=== PATIENT | female | born 2000 | race Caucasian/White ===

== ENCOUNTER 2022-08-09 10:24 | Outpatient (RCR) | payer OTHER, SELFPAY ==
[2022-08-07 12:54] LABS: Basophils Percent Auto 0.5 % (0.2-1.2); Eosinophils Absolute Auto 0.3 K/mm3 (0-0.3); Eosinophils Percent Auto 3.1 % (0-4.4); Hemoglobin 10.7 g/dL (12.0-15.0); Immature Granulocyte Absolute 0.05 K/mm3 (0.00-0.031); Immature Granulocyte Percent A 0.6 % (0-0.5); Lymphocytes Absolute Auto 1.61 K/mm3 (0.9-3.2); Lymphocytes Percent Auto 18.3 % (18.3-44.2); Mean Corpuscular HGB Conc 33.4 g/dl (32-36); Mean Corpuscular Hemoglobin 30.1 pg (26-34); Mean Corpuscular Volume 90.1 fl (80-100); Mean Platelet Volume 10.3 fl (7.4-10.4); Monocytes Absolute Auto 0.6 K/mm3 (0.1-0.6); Monocytes Percent Auto 7.1 % (2.6-8.5); Neutrophils Absolute Auto 6.2 K/mm3 (1.3-6.7); Neutrophils Percent Auto 70.4 % (45.5-73.1); Platelet Count Result 208 k/mm3 (150-375); Red Blood Count 3.55 M/mm3 (4.2-5.4); Red Cell Distribution Width 12.8 % (11.5-14.5); White Blood Count 8.8 K/mm3 (4.5-10.0)
[2022-08-07 13:02] LABS: Glucose 1 Hour PP 50gm Dose 100 mg/dL
[2022-08-07 13:43] LABS: HIV 1/2 Ab P24 Ag Result Negative (Negative)
[2022-08-09] MEDS: RHO(D) IMMUNE GLOBULIN 300 MCG/2 ML SYRINGE IM (11:21)
== END 2022-08-09 11:00 | disposition home or self-care (01) ==
LOC: ANHLAB 10:24
PROVIDERS: PCP Obstetrics & Gynecology; Visit Provider Obstetrics & Gynecology
DX: Z11.4 Encounter for screening for human immunodeficiency virus [HIV] (principal); Z29.13 Encounter for prophylactic Rho(D) immune globulin; O36.0190 Maternal care for anti-D [Rh] antibodies, unspecified trimester, not applicable or unspecified; Z3A.00 Weeks of gestation of pregnancy not specified
CPT/HCPCS: 36415; 82947; 85025; 85461; 86703; 90384; 96372; G0432; J2790

== ENCOUNTER 2022-09-04 15:12 | Outpatient (CLI) | payer OTHER, MEDICAID, SELFPAY ==
[2022-09-04 16:03] LABS: INR 1.1; Prothrombin Time 13.4 Seconds (11.1-14.7)
[2022-09-04 16:04] LABS: Partial Thromboplastin Time 24.6 SECONDS (22.3-36.8)
[2022-09-04 16:40] LABS: Alanine Aminotransferase 15 U/L (6-35); Albumin Level 3.4 g/dL (3.5-5.1); Alkaline Phosphatase 114 U/L (38-126); Anion Gap 8 mmol/L (8-16); Aspartate Amino Transferase 19 U/L (14-36); Bilirubin,Total 0.4 mg/dL (0.2-1.3); Blood Urea Nitrogen 10 mg/dL (7-17); Calcium 8.3 mg/dL (8.4-10.2); Carbon Dioxide 24 mmol/L (22-30); Chloride 105 mmol/L (98-107); Estimated Glomerular Filt Rate > 60; Glucose 100 mg/dL (65-110); Potassium 3.8 mmol/L (3.4-5.0); Sodium 137 mmol/L (137-145)
[2022-09-11 14:07] LABS: Chenodeoxycholic Acid 0.9 umol/L (< OR = 3.9); Cholic Acid 0.8 umol/L (< OR = 2.8); Deoxycholic Acid 0.8 umol/L (< OR = 2.3); Total Bile Acids 2.5 umol/L (< OR = 8.3)
== END 2022-09-04 15:13 | disposition home or self-care (01) ==
PROVIDERS: PCP Obstetrics & Gynecology; Visit Provider Obstetrics & Gynecology
DX: L29.8 Other pruritus (principal); Z34.90 Encounter for supervision of normal pregnancy, unspecified, unspecified trimester; Z3A.00 Weeks of gestation of pregnancy not specified
CPT/HCPCS: 36415; 80053; 82542; 85610; 85730

== ENCOUNTER 2022-09-17 15:00 | Outpatient (RCR) | payer OTHER, MEDICAID, SELFPAY ==
--- NOTE | 2022-08-20 09:50 | PTOPEVAL1 ---
Assessment and note entered by Diann Adler, PT Evaluation Information Assessment Status Evaluation Diagnosis sciatica unspecified Onset 2015 Subjective Information on and off 6 years, hard labor jobs. L>R no traumatic incident Reported Pain Level Pain Score 3: Self Report Additional Pain Score Comments Pt reports legs will go numb when walking long periods Reports hx of sciatica on and off last 6 years L>R Notes with , her pain worsens as she progresses. Assessment PT Clinical Summary Pt presents w/ hx of sciatica issues prior to that has worsened as her has progressed. Evaluation shows RLE leg is longer, decreased lumbopelvic strength in mata in glutes, tight and tender musculature lumbopelvic alignment changes consistent with . 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 Pt will benefit from therapy to minimize discomfort through progression of through alignment, strengthening, and manual soft issue procedures Plan of Care Interventions Manual Therapy,Neuro Re-education,Therapeutic Activities,Therapeutic Exercise,Self-Care/Home Management. Would benefit from SI Belt Other Interventions cold pack These treatments will address the objective and functional deficits as defined above. The patient will be advanced safely and appropriately in order for the patient to progress towards his/her prior level of function. Additional exercises will be introduced and as well as a comprehensive home exercise program upon discharge, if needed, ?to ensure carryover of functional gains achieved in the clinic. This treatment plan has been reviewed and agreement upon by the patient.
--- NOTE | 2022-09-01 08:56 | PCPTNOTE ---
Patient did not show up for scheduled appointment this date. Called and left voice mail, reminded Pt of missed appointment and upcoming appointment on 09/04/22 @14:15. This is Pt's first N/S.
--- NOTE | 2022-09-21 08:31 | BUPTOPDC ---
Assessment and note entered by Diann Adler, PT
--- NOTE | 2022-09-22 16:16 | BUPTOPDC ---
Assessment and note entered by Diann Adler, PT Discharge Information Assessment Status Discharge Diagnosis sciatica unspecified Onset 2015 Subjective Information Reports since starting therapy, episodes of her legs going numb have resolved as well as pain going down her legs. She cont to have back pain with work but has severe pain less often and on her days off she has no pain in her back. She also notes when she does have severe pain it reduces more quickly than previously Assessment PT Clinical Summary Pt has attended therapy consistently since initially evaluation for back pain and sciatica issues. She has made significantly progress especially considering the changes her body is going through rapidly as this phase of . Pt reports numbness and pain in legs has resolved, she has less severe pain less often and when she does have pain it recedes more rapidly. She shows increased strength and stability in her lumbopelvic area as well. She has been provided with up to date home exercises related to stretching and strengthening and educated her current discomfort is likely related to body changes with and her highly physical work activities. Thus patient is being discharged from current POC. She was educated also on returning to therapy should her symptoms worsen again as well as therapy options for pelvic floor rehab post- to prevent reoccurrence of sciatica and provide greatest outcomes. Plan of Care Discharge PT Services Indicated No
== END 2022-09-23 12:55 | disposition home or self-care (01) ==
LOC: ANHPT 15:00
PROVIDERS: PCP Obstetrics & Gynecology; Visit Provider Obstetrics & Gynecology
DX: M54.30 Sciatica, unspecified side (principal)
CPT/HCPCS: 97110; 97140; 97162; 99199

== ENCOUNTER 2022-10-06 17:58 | Outpatient (CLI) | payer OTHER, MEDICAID, SELFPAY ==
[2022-10-06 18:16] VITALS: BP 132/83; PULSE 82
[2022-10-06 18:30] VITALS: BP 127/76; PULSE 88
[2022-10-06 18:44] LABS: Appearance Urine Clear (Clear); Bilirubin Urine Negative (Negative); Blood Urine Negative (Negative); Color Urine Yellow (Yellow); Glucose Urine UA Negative (Negative); Ketones Urine Negative (Negative); Leukocyte Esterase Ur Negative LEU/UL (NEGATIVE); Nitrate Urine Negative (Negative); Protein Urine Negative (Negative); Specific Grav Ur 1.015 (1.001-1.035); pH Urine 6.5 (5.0-9.0)
[2022-10-06 18:45] VITALS: BP 124/75; PULSE 84
[2022-10-06 18:45] LABS: Basophils Percent Auto 0.1 % (0.2-1.2); Eosinophils Percent Auto 0.5 % (0-4.4); Hematocrit 29.2 % (37.0-47.0); Hemoglobin 9.5 g/dL (12.0-15.0); Immature Granulocyte Absolute 0.04 K/mm3 (0.00-0.031); Immature Granulocyte Percent A 0.5 % (0-0.5); Lymphocytes Absolute Auto 1.24 K/mm3 (0.9-3.2); Lymphocytes Percent Auto 16.3 % (18.3-44.2); Mean Corpuscular HGB Conc 32.5 g/dl (32-36); Mean Corpuscular Hemoglobin 27.5 pg (26-34); Mean Corpuscular Volume 84.6 fl (80-100); Mean Platelet Volume 11.7 fl (7.4-10.4); Monocytes Absolute Auto 0.5 K/mm3 (0.1-0.6); Monocytes Percent Auto 6.3 % (2.6-8.5); Neutrophils Absolute Auto 5.8 K/mm3 (1.3-6.7); Neutrophils Percent Auto 76.3 % (45.5-73.1); Platelet Count Result 205 k/mm3 (150-375); Red Blood Count 3.45 M/mm3 (4.2-5.4); Red Cell Distribution Width 12.9 % (11.5-14.5); White Blood Count 7.6 K/mm3 (4.5-10.0)
[2022-10-06 18:46] LABS: Bacteria Urine Trace /hpf; Mucus Urine Rare /lpf; RBC Urine 0-2 /hpf (0-2); WBC Urine 0-3 /hpf (0-3)
[2022-10-06 18:54] LABS: Alanine Aminotransferase 17 U/L (6-35); Albumin Level 3.2 g/dL (3.5-5.1); Alkaline Phosphatase 155 U/L (38-126); Anion Gap 10 mmol/L (8-16); Aspartate Amino Transferase 27 U/L (14-36); Bilirubin,Total 0.2 mg/dL (0.2-1.3); Blood Urea Nitrogen 9 mg/dL (7-17); Calcium 8.1 mg/dL (8.4-10.2); Carbon Dioxide 23 mmol/L (22-30); Chloride 102 mmol/L (98-107); Estimated Glomerular Filt Rate > 60; Glucose 103 mg/dL (65-110); Potassium 3.5 mmol/L (3.4-5.0); Sodium 135 mmol/L (137-145); Uric Acid 5.6 mg/dL (2.5-7.5)
[2022-10-06 19:00] VITALS: BP 123/71; PULSE 82
[2022-10-06 19:15] VITALS: BP 112/66; PULSE 74
[2022-10-06 19:17] LABS: Creatinine Urine 73.9 mg/dL; Total Protein Urine Random 6 mg/dL; Ur Ttl Prot Creatinine Ratio 0.08 mg/mg (0-0.20)
[2022-10-06 19:23] LABS: Add Urine Microscopic? NO
[2022-10-06 19:30] VITALS: BP 127/72; PULSE 72
--- NOTE | 2022-10-06 19:38 | PC.NURSE ---
192 Dr. Burkett paged via answering service.
--- NOTE | 2022-10-06 19:44 | PC.NURSE ---
[address] Burkett. Reviewed labs, [facility]. Orders received to send patient home with instructions to stay hydrated and keep next appointment at the office.
== END 2022-10-06 19:48 ==
LOC: ANHOBOP 18:05 → ANHOBPP 18:06
PROVIDERS: Visit Provider Obstetrics & Gynecology
DX: O13.9 Gestational [pregnancy-induced] hypertension without significant proteinuria, unspecified trimester (principal)
CPT/HCPCS: 36415; 59025; 80053; 81003; 82570; 84156; 84550; 85025; 87086; 99199

== ENCOUNTER 2022-10-21 02:41 | Inpatient (IN) | payer OTHER, MEDICAID, SELFPAY ==
[2022-10-21] VITALS (107 sets, daily range): BP systolic 102–217; BP diastolic 49–196; PULSE 44–193; RESP 16–18; TEMP 36.5–37.3; O2SAT 72–100; BMI 25.9
[2022-10-21 03:21] LABS: Basophils Percent Auto 0.3 % (0.2-1.2); Eosinophils Absolute Auto 0.1 K/mm3 (0-0.3); Eosinophils Percent Auto 0.6 % (0-4.4); Hematocrit 35.2 % (37.0-47.0); Hemoglobin 11.3 g/dL (12.0-15.0); Immature Granulocyte Absolute 0.18 K/mm3 (0.00-0.031); Immature Granulocyte Percent A 1.2 % (0-0.5); Lymphocytes Absolute Auto 1.82 K/mm3 (0.9-3.2); Lymphocytes Percent Auto 12.6 % (18.3-44.2); Mean Corpuscular HGB Conc 32.1 g/dl (32-36); Mean Corpuscular Hemoglobin 27.3 pg (26-34); Mean Platelet Volume 12.4 fl (7.4-10.4); Monocytes Absolute Auto 1.1 K/mm3 (0.1-0.6); Monocytes Percent Auto 7.6 % (2.6-8.5); Neutrophils Absolute Auto 11.2 K/mm3 (1.3-6.7); Neutrophils Percent Auto 77.7 % (45.5-73.1); Platelet Count Result 241 k/mm3 (150-375); Red Blood Count 4.14 M/mm3 (4.2-5.4); Red Cell Distribution Width 14.1 % (11.5-14.5); White Blood Count 14.4 K/mm3 (4.5-10.0)
--- NOTE | 2022-10-21 03:22 | LDADM ---
This patient, Nancie Zamora, was admitted to Labor/Delivery/Recovery 103 on 10/21/22 at 02:41. Plans for labor, pain management and were discussed with patient. Patient/family oriented to hospital policies and general routines including ID bracelet, bed and alarms, visiting hours, pain management, procedures, bathroom and other care routines, personal items, smoking policy, room service/diet and guest tray routines, security routines, and visiting hours. Patient/Family are encouraged to report perceived risks to care and to ask questions if they do not understand what they are told or what they should do. See OBIX for further documentation.
[2022-10-21] MEDS: LACTATED RINGERS 1,000 ML 125 ML IV CONT ×3 (03:30→06:46)
--- NOTE | 2022-10-21 03:40 | WPDANESEPP ---
Anes - Eval Pre Procedure Procedure: labor epidural Date/Time: 10/21/22 03:40 Pre Op Diagnosis: contractions Patient Data Age: 22 Gender: F Height: 1.7 m Weight: 75 kg Last Vital Signs Pulse 101 H 10/21/22 03:33 BP 154/100 H 10/21/22 03:33 O2 Del Method Room Air 10/21/22 02:41 Allergies Allergy/AdvReac Type Severity Reaction Status Date / Time No Known Allergies Allergy Verified 10/16/22 10:16 Home Medications Medication Instructions Recorded Confirmed Type metoclopramide HCl 10 mg tablet 10 mg PO Q6H PRN nausea and 09/07/22 10/21/22 Rx (Reglan) vomiting #40 tabs Laboratory Tests 10/21/22 10/21/22 03:13 03:13 WBC 14.4 K/mm3 H K/mm3 (4.5-10.0) RBC 4.14 M/mm3 L M/mm3 (4.2-5.4) Hgb 11.3 g/dL L g/dL (12.0-15.0) Hct 35.2 % L % (37.0-47.0) MCV 85.0 fl fl (80-100) MCH 27.3 pg pg (26-34) MCHC 32.1 g/dl g/dl (32-36) RDW 14.1 % % (11.5-14.5) Plt Count 241 k/mm3 k/mm3 (150-375) MPV 12.4 fl H fl (7.4-10.4) Immature Gran % (Auto) 1.2 % H % (0-0.5) Neut % (Auto) 77.7 % H % (45.5-73.1) Lymph % (Auto) 12.6 % L % (18.3-44.2) Hanson % (Auto) 7.6 % % (2.6-8.5) Eos % (Auto) 0.6 % % (0-4.4) Baso % (Auto) 0.3 % % (0.2-1.2) Lymph # (Auto) 1.82 K/mm3 K/mm3 (0.9-3.2) Hanson # (Auto) 1.1 K/mm3 H K/mm3 (0.1-0.6) Eos # (Auto) 0.1 K/mm3 K/mm3 (0-0.3) Baso # (Auto) 0.0 K/mm3 K/mm3 (0.0-0.1) Abs Immat Gran (auto) 0.18 K/mm3 H K/mm3 (0.00-0.031) Absolute Neuts (auto) 11.2 K/mm3 H K/mm3 (1.3-6.7) Absolute Nucleated RBC 0.0 K/mm3 K/mm3 (0.0-0.012) Nucleated RBC % 0.0 % % (0.0-0.2) RPR Pending Patient hx anesthesia problems: none Family hx anesthesia problems: none Results Review: All pre-operative results and documents have been reviewed as part of the pre-operative evaluation. [facility] Past Medical History Medical History Anxiety and depression Kidney disease (~04/29/18) clogged kidney Suppression of menstruation Family History Family History Mother Diabetes mellitus Breast cancer, Onset Age: 45 Grandparent Diabetes mellitus Sibling Diabetes mellitus Social History Social History Smoking packs per day: 0.5 Smoking cigarettes per day: 10.0 Smoking status: Former smoker Tobacco type: cigarettes Second hand tobacco smoke exposure: Yes Smoking end date: 01/20/22 Alcohol intake: never Substance use: never Substance use type: does not use Lack of Transportation: No Lack of Food: Never True Current Housing: I Have Housing Concerned About Future Housing: No Difficulty Paying Gas/Electric Bills: No Difficulty Paying for Meds: No Currently Unemployed: No Education: Grade School Difficulty w/ Childcare or Family Care: No Additional living arrangements comments: Additional occupation/education comments: [employer] Gender identity (if verbalized by the patient): Female Sexual Orientation (if Verbalized by the Patient): Straight or Heterosexual Spiritual care concerns: No Exam Day of Procedure 10/21/22 03:40 Patient weight: normal Heart: regular rate and rhythm Lungs: normal air movement Airway: Mallampati scale Neurological: alert and oriented
[2022-10-21 06:37] LABS: Rapid Plasma Reagin Non-Reactive (NonReactive)
[2022-10-21] MEDS: FAMOTIDINE 20 MG/2 ML VIAL IV PUSH (06:56)
[2022-10-21] MEDS: OXYTOCIN 30 UNITS/NS 500 ML 30 UNITS/500 ML BAG IV CONT (07:30)
--- NOTE | 2022-10-21 10:46 | WPDHPUPDATE1 ---
History and Physical Update Update Date/Time: 10/21/22 10:46 History and Physical has been reviewed, including an updated exam of the patient. There are NO changes in the patient's condition. Risks, benefits, and alternatives have been discussed and questions answered. Patient agrees to proceed with procedure.
--- NOTE | 2022-10-21 10:46 | PM.OBPRVD ---
OB - Delivery Note Procedure Induction method: None Delivery augmentation: Pitocin Delivery monitor: External FHT and External Uterine Route of delivery: Episiotomy description: None Laceration Description: Vaginal Delivery repair: chromic Specimen: No Quantitative Blood Loss (ml): 350 Anesthesia type: Epidural Disposition: Floor Complications: none Narrative: patient prepped and draped usual manner for this procedure. Maternal expulsive efforts readily delivered vertex which was followed by the rest of the baby. Cord clamped and cut baby was passed off the operative field. Placenta delivered spontaneously and the uterus well contracted. Left vaginal wall laceration was noted and approximated using 2-0 chromic in a running interlocking manner with good approximation and hemostasis noted. Again at this point there was no significant bleeding and mother was doing well. Immediate postop condition of mother baby both excellent at this point the procedure was considered terminated. Baby Weeks of gestation at delivery: 40 gender: Male Weight (pounds): 7 Weight (ounces): 9 presentation: vertex Placenta delivery description: Spontaneous Cord Vessel Description: 3 Vessels score one minute: 8 score five minutes: 9 AMG Delivery Billing Delivery Delivery: Delivery Charge
--- NOTE | 2022-10-21 10:54 | WPDOBADMIT ---
Obstetrics - Admit Note Admission Note: record reviewed. No pertinent additions to the history and/or any subsequent changes in the physical findings that are not consistent with the expected course of the were found. Additions to the history and/or subsequent changes in the physical findings follow. None.
[2022-10-21] MEDS: WITCH HAZEL 40 PADS 1 PAD TOPICAL (12:13)
[2022-10-21] MEDS: BENZOCAINE 20% AER SPR (*SP) 56 GM CAN 1 SPRAY TOPICAL (12:13)
[2022-10-21] MEDS: IBUPROFEN 600 MG TABLET PO (12:27)
--- NOTE | 2022-10-21 12:41 | PC.NURSE ---
Patient transferred to post room #283 via (W/C). Support person present. Oriented to unit, room, information board, rooming in, admission packet and security measures. Patient verbalizes understanding.
[2022-10-21] MEDS: ACETAMINOPHEN 325 MG TABLET 650 MG PO (15:51)
[2022-10-21] MEDS: DOCUSATE SODIUM 100 MG CAPSULE PO (15:52)
[2022-10-22 03:51] VITALS: BP 148/90; PULSE 67; RESP 18; TEMP 36.9; O2SAT 99
[2022-10-22 04:32] LABS: Hematocrit 28.5 % (37.0-47.0); Hemoglobin 9.1 g/dL (12.0-15.0)
[2022-10-22] MEDS: IBUPROFEN 600 MG TABLET PO ×2 (07:52→14:43)
[2022-10-22] MEDS: DOCUSATE SODIUM 100 MG CAPSULE PO (07:53)
[2022-10-22] MEDS: POLYSACCHARIDE IRON COMPLEX 150 MG CAPSULE PO (07:53)
[2022-10-22] MEDS: MULTIVIT/MIN/PREN/FOL AC/IRON TABLET 1 TAB PO (07:53)
[2022-10-22 08:00] VITALS: BP 125/79; PULSE 90; RESP 20; TEMP 37.2; O2SAT 99
--- NOTE | 2022-10-22 10:09 | PM.OBDSVD ---
DS: Admitting Diagnosis Discharge Date 10/22/2022 Admitting Diagnosis OB - DS: Summary OB Procedures : None OB Procedures Intrapartum: Spontaneous Vag Delivery OB Procedures: : None Time Spent with Patient Time attestation: Total time spent providing and/or coordinating discharge services: DS: Data Data Completed and Pending Labs on day of discharge: Labs from last 24 hours 10/22/22 10/22/22 03:30 03:30 Hgb 9.1 L Hct 28.5 L Blood Type O Negative Antibody Screen Negative Screen Negative Baby's Blood Type O pos Baby's TANESHA Negative Doses of RhIg Required 1 Discharge Plan Discharge Discharging Clinician: Alcides Burkett Patient Disposition: Home, Self-Care Activity: as tolerated Diet: as tolerated Patient Instructions: Antibiotic Form Stand Alone Forms: General Discharge Information Follow-up/Referrals: Alcides Burkett MD [Physician] - Discharge Medications: New ibuprofen 600 mg Tablet 600 mg PO Q6H PRN (Reason: Cramping) Qty: 30 0RF Discontinued metoclopramide HCl [Reglan] 10 mg tablet 10 mg PO Q6H PRN (Reason: nausea and vomiting) Qty: 40 2RF Date of admission: 10/21/22 02:41 Primary Care Provider: PHYSICIAN,[employer] Admitting Provider: Alcides Burkett Attending physician on admission: Alcides Burkett Condition: Stable
--- NOTE | 2022-10-22 10:48 | WPDANLDPN2 ---
Anes-Prog Note L&D Date/Time: 10/22/22 10:48 Comfortable throughout: labor and delivery Neuraxial method: epidural Epidural/Spinal procedure site: clean & non-tender Neuro status: Neuro function grossly intact. Cardiovascular status: normal Respiratory status: normal Airway patency: baseline Mental status: baseline Post-Op hydration status: normal Vital Signs: Last Vital Signs Temp 37.2 C 10/22/22 08:00 Pulse 90 10/22/22 08:00 Resp 20 10/22/22 08:00 BP 125/79 10/22/22 08:00 Pulse Ox 99 10/22/22 08:00 O2 Del Method Room Air 10/21/22 21:00 Pain score (VAS): 12/08 I/O: Intake & Output 10/21/22 10/22/22 10/22/22 23:59 07:59 15:59 Intake Total 240 Balance 240 Post-procedural complaints: none Patient feedback: Patient satisfied with anesthetic care.
[2022-10-22] MEDS: RHO(D) IMMUNE GLOBULIN 300 MCG/2 ML SYRINGE IM (14:38)
--- NOTE | 2022-10-22 15:23 | PC.NURSE ---
7830 Patient viewed the discharge video Mother & Baby Care, The First Two Weeks . Patient was given the opportunity and encouraged to ask questions. Patient verbalized understanding of information shared and has been given the mother/baby guide for home reference.
== END 2022-10-22 15:25 | disposition home or self-care (01) | DRG 807 ==
LOC: ANHLDR 03:17 → ANHOB2 13:07
PROVIDERS: Admitting Provider Obstetrics & Gynecology; Visit Provider Obstetrics & Gynecology
DX: O70.0 First degree perineal laceration during delivery (principal); Z37.0 Single live birth; Z3A.40 40 weeks gestation of pregnancy; Z23 Encounter for immunization
CPT/HCPCS: 36415; 85014; 85018; 85025; 85461; 86592; 86850; 86880; 86900; 86901; 90384; 90471; 90686; A9270; G0008; J2590; J2790; J2795; J7120

== ENCOUNTER 2022-12-17 09:20 | Outpatient (CLI) | payer OTHER, MEDICAID, SELFPAY ==
[2022-12-17 10:23] LABS: Beta HCG Quantitative < 2.39 mIU/ML
== END 2022-12-17 09:21 | disposition home or self-care (01) ==
LOC: ANHLAB 09:23
PROVIDERS: Visit Provider Student in an Organized Health Care Education/Training Program
DX: N92.6 Irregular menstruation, unspecified (principal)
CPT/HCPCS: 36415; 84702

== ENCOUNTER 2023-06-30 15:44 | Outpatient (CLI) | payer OTHER, MEDICAID, SELFPAY ==
[2023-06-30 19:10] LABS: Basophils Percent Auto 0.6 % (0.2-1.2); Eosinophils Percent Auto 0.8 % (0-4.4); Hematocrit 39.6 % (37.0-47.0); Hemoglobin 13.1 g/dL (12.0-15.0); Immature Granulocyte Absolute 0.01 K/mm3 (0.00-0.031); Immature Granulocyte Percent A 0.2 % (0-0.5); Lymphocytes Absolute Auto 1.83 K/mm3 (0.9-3.2); Lymphocytes Percent Auto 37.5 % (18.3-44.2); Mean Corpuscular HGB Conc 33.1 g/dl (32-36); Mean Corpuscular Hemoglobin 29.2 pg (26-34); Mean Corpuscular Volume 88.2 fl (80-100); Mean Platelet Volume 11.8 fl (7.4-10.4); Monocytes Absolute Auto 0.4 K/mm3 (0.1-0.6); Monocytes Percent Auto 7.8 % (2.6-8.5); Neutrophils Absolute Auto 2.6 K/mm3 (1.3-6.7); Neutrophils Percent Auto 53.1 % (45.5-73.1); Platelet Count Result 232 k/mm3 (150-375); Red Blood Count 4.49 M/mm3 (4.2-5.4); Red Cell Distribution Width 13.2 % (11.5-14.5); White Blood Count 4.9 K/mm3 (4.5-10.0)
[2023-06-30 19:42] LABS: Thyroid Stimulating Hormone 0.391 uIU/mL (0.465-4.680)
== END 2023-06-30 15:45 | disposition home or self-care (01) ==
LOC: ANHGOSHLAB 15:46
PROVIDERS: Visit Provider Student in an Organized Health Care Education/Training Program
DX: R53.1 Weakness (principal); R42 Dizziness and giddiness
CPT/HCPCS: 36415; 84443; 85025

== ENCOUNTER 2024-02-23 10:46 | Outpatient (CLI) | payer OTHER, SELFPAY ==
[2024-02-23 11:57] LABS: Basophils Percent Auto 0.7 % (0.2-1.2); Eosinophils Absolute Auto 0.1 K/mm3 (0-0.3); Eosinophils Percent Auto 0.9 % (0-4.4); Hematocrit 40.7 % (37.0-47.0); Hemoglobin 13.7 g/dL (12.0-15.0); Immature Granulocyte Absolute 0.02 K/mm3 (0.00-0.031); Immature Granulocyte Percent A 0.4 % (0-0.5); Lymphocytes Absolute Auto 1.47 K/mm3 (0.9-3.2); Lymphocytes Percent Auto 27.3 % (18.3-44.2); Mean Corpuscular HGB Conc 33.7 g/dl (32-36); Mean Corpuscular Hemoglobin 30.6 pg (26-34); Mean Corpuscular Volume 91.1 fl (80-100); Mean Platelet Volume 11.6 fl (7.4-10.4); Monocytes Absolute Auto 0.4 K/mm3 (0.1-0.6); Monocytes Percent Auto 6.7 % (2.6-8.5); Neutrophils Absolute Auto 3.4 K/mm3 (1.3-6.7); Platelet Count Result 189 k/mm3 (150-375); Red Blood Count 4.47 M/mm3 (4.2-5.4); Red Cell Distribution Width 12.1 % (11.5-14.5); White Blood Count 5.4 K/mm3 (4.5-10.0)
[2024-02-23 12:26] LABS: Beta HCG Quantitative 40.08 mIU/ML
[2024-02-23 12:51] LABS: HIV 1/2 Ab P24 Ag Result Negative (Negative)
[2024-02-23 13:05] LABS: Hepatitis B Surface Antigen Negative (Negative); Rubella IgG Antibody 30.8 IU/ML
[2024-02-23 14:27] LABS: Rapid Plasma Reagin Non-Reactive (NonReactive)
[2024-02-25 18:33] LABS: CMV IgG Antibody >10.00 U/mL (<0.60)
== END 2024-02-23 10:47 | disposition home or self-care (01) ==
PROVIDERS: Visit Provider Student in an Organized Health Care Education/Training Program
DX: N94.89 Other specified conditions associated with female genital organs and menstrual cycle (principal)
CPT/HCPCS: 36415; 84702; 85025; 86592; 86644; 86703; 86747; 86762; 86787; 86850; 86900; 86901; 87086; 87340; G0432

== ENCOUNTER 2024-02-25 08:40 | Outpatient (CLI) | payer OTHER, SELFPAY ==
[2024-02-25 10:15] LABS: Beta HCG Quantitative 122.57 mIU/ML
== END 2024-02-25 08:41 | disposition home or self-care (01) ==
LOC: ANHLAB 08:41
PROVIDERS: PCP Nurse Practitioner Family; Visit Provider Student in an Organized Health Care Education/Training Program
DX: N91.2 Amenorrhea, unspecified (principal)
CPT/HCPCS: 36415; 84702

== ENCOUNTER 2024-08-16 13:11 | Outpatient (RCR) | payer OTHER, SELFPAY ==
[2024-08-16 14:31] LABS: Hematocrit 33.8 % (37.0-47.0); Hemoglobin 11.2 g/dL (12.0-15.0); Mean Corpuscular HGB Conc 33.1 g/dl (32-36); Mean Corpuscular Hemoglobin 30.2 pg (26-34); Mean Corpuscular Volume 91.1 fl (80-100); Mean Platelet Volume 10.2 fl (7.4-10.4); Platelet Count Result 173 k/mm3 (150-375); Red Blood Count 3.71 M/mm3 (4.2-5.4); Red Cell Distribution Width 12.9 % (11.5-14.5); White Blood Count 8.9 K/mm3 (4.5-10.0)
[2024-08-16 14:45] LABS: Glucose 1 Hour PP 50gm Dose 83 mg/dL
[2024-08-16 15:15] LABS: Thyroid Stimulating Hormone 0.249 uIU/mL (0.465-4.680)
[2024-08-16 15:25] LABS: HIV 1/2 Ab P24 Ag Result Negative (Negative)
[2024-08-17 17:30] LABS: Rapid Plasma Reagin Non-Reactive (NonReactive)
== END 2024-11-14 23:59 | disposition home or self-care (01) ==
LOC: ANHLAB 13:11
PROVIDERS: PCP Nurse Practitioner Family; Visit Provider Student in an Organized Health Care Education/Training Program
DX: Z11.4 Encounter for screening for human immunodeficiency virus [HIV] (principal); Z11.3 Encounter for screening for infections with a predominantly sexual mode of transmission; Z29.13 Encounter for prophylactic Rho(D) immune globulin; O36.0190 Maternal care for anti-D [Rh] antibodies, unspecified trimester, not applicable or unspecified; O99.280 Endocrine, nutritional and metabolic diseases complicating pregnancy, unspecified trimester; E03.9 Hypothyroidism, unspecified; Z3A.00 Weeks of gestation of pregnancy not specified
CPT/HCPCS: 36415; 82947; 84439; 84443; 85027; 85461; 86592; 86703; 86850; 86900; 86901; 90384; G0432; J2790

== ENCOUNTER 2024-08-17 16:06 | Outpatient (CLI) | payer OTHER, SELFPAY ==
[2024-08-17] MEDS: RHO(D) IMMUNE GLOBULIN 300 MCG/2 ML SYRINGE IM (16:41)
[2024-08-17 17:44] LABS: Free T4 Free Thyroxine 0.73 ng/mL (0.78-2.19)
== END 2024-08-17 16:07 | disposition home or self-care (01) ==
LOC: ANHLAB 16:07
PROVIDERS: PCP Nurse Practitioner Family; Visit Provider Student in an Organized Health Care Education/Training Program
DX: O99.280 Endocrine, nutritional and metabolic diseases complicating pregnancy, unspecified trimester (principal); E05.90 Thyrotoxicosis, unspecified without thyrotoxic crisis or storm; Z3A.00 Weeks of gestation of pregnancy not specified
CPT/HCPCS: 36415; 84439

== ENCOUNTER 2024-08-22 12:08 | Outpatient (CLI) | payer OTHER, SELFPAY ==
[2024-08-22 13:13] LABS: Free T4 Free Thyroxine 0.78 ng/mL (0.78-2.19)
== END 2024-08-22 12:09 | disposition home or self-care (01) ==
LOC: ANHLAB 12:09
PROVIDERS: PCP Nurse Practitioner Family; Visit Provider Student in an Organized Health Care Education/Training Program
DX: O99.280 Endocrine, nutritional and metabolic diseases complicating pregnancy, unspecified trimester (principal); E05.90 Thyrotoxicosis, unspecified without thyrotoxic crisis or storm; Z3A.00 Weeks of gestation of pregnancy not specified
CPT/HCPCS: 36415; 84439

== ENCOUNTER 2024-09-20 10:39 | Outpatient (CLI) | payer OTHER, SELFPAY ==
[2024-09-20 11:57] LABS: Thyroid Stimulating Hormone 0.188 uIU/mL (0.465-4.680)
== END 2024-09-20 10:40 | disposition home or self-care (01) ==
PROVIDERS: PCP Nurse Practitioner Family
DX: E03.8 Other specified hypothyroidism (principal)
CPT/HCPCS: 36415; 84443

== ENCOUNTER 2024-11-02 22:24 | Inpatient (IN) | payer OTHER, SELFPAY ==
[2024-11-02] VITALS (19 sets, daily range): BP systolic 113–144; BP diastolic 70–91; PULSE 78–100; TEMP 36.7; O2SAT 97–100; BMI 24.3
[2024-11-02] MEDS: LACTATED RINGERS 1,000 ML 125 ML IV CONT ×2 (23:10→23:26)
[2024-11-02 23:12] LABS: Basophils Percent Auto 0.3 % (0.2-1.2); Eosinophils Absolute Auto 0.1 K/mm3 (0-0.3); Eosinophils Percent Auto 0.8 % (0-4.4); Hematocrit 35.9 % (37.0-47.0); Hemoglobin 12.3 g/dL (12.0-15.0); Immature Granulocyte Absolute 0.07 K/mm3 (0.00-0.031); Immature Granulocyte Percent A 0.8 % (0-0.5); Lymphocytes Absolute Auto 1.67 K/mm3 (0.9-3.2); Lymphocytes Percent Auto 18.4 % (18.3-44.2); Mean Corpuscular HGB Conc 34.3 g/dl (32-36); Mean Corpuscular Hemoglobin 30.4 pg (26-34); Mean Corpuscular Volume 88.6 fl (80-100); Mean Platelet Volume 11.5 fl (7.4-10.4); Monocytes Absolute Auto 0.6 K/mm3 (0.1-0.6); Monocytes Percent Auto 6.9 % (2.6-8.5); Neutrophils Absolute Auto 6.6 K/mm3 (1.3-6.7); Neutrophils Percent Auto 72.8 % (45.5-73.1); Platelet Count Result 188 k/mm3 (150-375); Red Blood Count 4.05 M/mm3 (4.2-5.4); Red Cell Distribution Width 13.2 % (11.5-14.5); White Blood Count 9.1 K/mm3 (4.5-10.0)
--- NOTE | 2024-11-02 23:14 | LDADM ---
This patient, Nancie Zamora, was admitted to Labor/Delivery/Recovery 107 on 11/02/24 at 22:24. Plans for labor, pain management and were discussed with patient. Patient/family oriented to hospital policies and general routines including ID bracelet, bed and alarms, visiting hours, pain management, procedures, bathroom and other care routines, personal items, smoking policy, room service/diet and guest tray routines, security routines, and visiting hours. Patient/Family are encouraged to report perceived risks to care and to ask questions if they do not understand what they are told or what they should do. See OBIX for further documentation.
--- NOTE | 2024-11-02 23:25 | P.PNAN_ITS ---
Anes - Eval Pre Procedure Procedure: Labor Epidural Date/Time: 11/02/24 23:25 Surgeon: Marisol Preop Diagnosis: Labor pain Pre Op Diagnosis: labor Patient Data Age: 24 Gender: F Height: 1.7 m Weight: 70.45 kg Last Vital Signs Pulse 78 11/02/24 23:16 BP 113/77 11/02/24 23:16 O2 Del Method Room Air 11/02/24 23:12 Allergies Allergy/AdvReac Type Severity Reaction Status Date / Time No Known Allergies Allergy Verified 11/02/24 08:56 Home Medications Medication Instructions Recorded Confirmed Type ondansetron HCl 4 mg tablet 4 mg PO Q6H PRN nausea and 03/30/24 11/02/24 Rx vomiting #30 tabs vits no.126-ferrous fum 1 tablet PO DAILY #90 tabs 07/18/24 11/02/24 Rx 28 mg iron-folic acid 800 mcg tablet (Classic ) triamcinolone acetonide 0.025 % 1 applic topical BID #60 mL 08/17/24 11/02/24 Rx lotion levothyroxine 25 mcg tablet 25 mcg PO DAILY #30 tabs 10/18/24 11/02/24 Rx Laboratory Tests 11/02/24 22:55 WBC 9.1 K/mm3 (4.5-10.0) RBC 4.05 L M/mm3 (4.2-5.4) Hgb 12.3 g/dL (12.0-15.0) Hct 35.9 L % (37.0-47.0) MCV 88.6 fl (80-100) MCH 30.4 pg (26-34) MCHC 34.3 g/dl (32-36) RDW 13.2 % (11.5-14.5) Plt Count 188 k/mm3 (150-375) MPV 11.5 H fl (7.4-10.4) Immature Gran % (Auto) 0.8 H % (0-0.5) Neut % (Auto) 72.8 % (45.5-73.1) Lymph % (Auto) 18.4 % (18.3-44.2) Borden % (Auto) 6.9 % (2.6-8.5) Eos % (Auto) 0.8 % (0-4.4) Baso % (Auto) 0.3 % (0.2-1.2) Lymph # (Auto) 1.67 K/mm3 (0.9-3.2) Borden # (Auto) 0.6 K/mm3 (0.1-0.6) Eos # (Auto) 0.1 K/mm3 (0-0.3) Baso # (Auto) 0.0 K/mm3 (0.0-0.1) Abs Immat Gran (auto) 0.07 H K/mm3 (0.00-0.031) Absolute Neuts (auto) 6.6 K/mm3 (1.3-6.7) Absolute Nucleated RBC 0.000 K/mm3 (0.0-0.012) Nucleated RBC % 0.0 % (0.0-0.2) RPR Pending HIV 1&2 Ab/P24 Ag 4thGn Pending Blood Type Pending Antibody Screen Pending : gestational age (KEYLA 11/03/24, ) Patient hx anesthesia problems: none Family hx anesthesia problems: none Results Review: All pre-operative results and documents have been reviewed as part of the pre- operative evaluation. [facility] Past Medical History Medical History Anxiety and depression Encounter for insertion of intrauterine contraceptive device Encounter for removal of intrauterine contraceptive device Irregular periods Kidney disease (~04/29/18) clogged kidney Surgical History Surgical History H/O gynecological procedure Mirena IUD removal 12/08/23 Family History Family History Mother Diabetes mellitus Breast cancer, Onset Age: 45 Grandparent Diabetes mellitus Sibling Diabetes mellitus Social History Social History Smoking packs per day: 0.5 Smoking cigarettes per day: 10.0 Smoking status: Former smoker Tobacco type: cigarettes Second hand tobacco smoke exposure: No Smoking end date: 01/20/22 Alcohol intake: never Substance use: never Substance use type: does not use Do You Feel Safe in your Home?: Yes Lack of Transportation: No Lack of Food: Never True Current Housing: I Have Housing Concerned About Future Housing: No Difficulty Paying Gas/Electric Bills: No Difficulty Paying for Meds: No Currently Unemployed: No Education: Grade School Difficulty w/ Childcare or Family Care: No Living arrangements: with family Occupation/Education: occupation Additional occupation/education comments: [employer] Gender identity (if verbalized by the patient): Female Sexual Orientation (if Verbalized by the Patient): Straight or Heterosexual Spiritual care concerns: No Exam Day of Procedure 11/02/24 23:25 Patient weight: normal Heart: regular rate and rhythm Lungs: normal air movement Airway: Mallampati scale class II Neurological: alert and oriented
[2024-11-02 23:40] LABS: Rapid Plasma Reagin Non-Reactive (NonReactive)
[2024-11-03] VITALS (149 sets, daily range): BP systolic 85–159; BP diastolic 46–124; PULSE 57–133; RESP 14–22; TEMP 36.6–36.9; O2SAT 89–100
[2024-11-03 00:06] LABS: HIV 1/2 Ab P24 Ag Result Negative (Negative)
[2024-11-03] MEDS: PETROLATUM OINTMENT 5 GM PACKET 1 APPLIC (06:40)
[2024-11-03] MEDS: OXYTOCIN 30 UNITS/NS 500 ML 30 UNITS/500 ML BAG 999 UNITS IV CONT (07:15)
--- NOTE | 2024-11-03 07:22 | WPDHPUPDATE1 ---
History and Physical Update Update Date/Time: 11/03/24 07:22 24 yo at 39w6d who presents in labor. She had SROM with regular contractions History and Physical has been reviewed, including an updated exam of the patient. There are NO changes in the patient's condition. Risks, benefits, and alternatives have been discussed and questions answered. Patient agrees to proceed with procedure. A/P: admit to L&D routine admission orders Rh neg, will need rhogam continuous EFM will augment as necessary
--- NOTE | 2024-11-03 07:24 | PM.OBPRVD ---
OB - Vaginal Delivery Note Procedure Delivery date: 11/03/24 Induction method: None Delivery monitor: External FHT and External Uterine Route of delivery: Episiotomy description: None Laceration Description: None Specimen: No Quantitative Blood Loss (ml): 100 Anesthesia type: Epidural Disposition: Floor Complications: No immediate complications Narrative: Patient pushed for a spontaneous vaginal delivery. A loose nuchal cord was noted and delivered through. The fetus was delivered atraumatically and placed on the maternal abdomen. The cord was clamped and cut after 1 minute of life. The cord was double clamped and cut and a segment of cord was collected for cord gases. Cord blood was collected for blood type and Coomb's testing. The placenta delivered spontaneously and was noted to be intact. The perineum was inspected and noted to be intact. The uterus was firm and good hemostasis was noted. [place] Baby Date of : 11/03/24 Time of : 07:14 Gestational Age by Date: 40 Infant gender: Male presentation: vertex position: Right Occiput Anterior Placenta delivery description: Spontaneous Cord Vessel Description: 3 Vessels and Nuchal Cord score one minute: 9 score five minutes: 9
[2024-11-03] MEDS: OXYTOCIN 30 UNITS/NS 500 ML 30 UNITS/500 ML BAG 125 UNITS IV CONT (07:51)
[2024-11-03] MEDS: BENZOCAINE 20% AER SPR (*SP) 56 GM CAN 1 SPRAY TOPICAL (09:23)
[2024-11-03] MEDS: MULTIVIT/MIN/PREN/FOL AC/IRON TABLET 1 TAB PO (09:23)
[2024-11-03] MEDS: IBUPROFEN 600 MG TABLET PO ×2 (09:23→19:24)
[2024-11-03] MEDS: WITCH HAZEL 40 PADS 1 PAD TOPICAL ×2 (09:24→17:06)
--- NOTE | 2024-11-03 10:45 | OBPPTRN ---
Patient transferred to post room #292 via wheelchair. Support person and baby present. Oriented to unit, room, information board, rooming in, admission packet and security measures. Patient verbalizes understanding.
--- NOTE | 2024-11-03 14:30 | PC.NURSE ---
1400. Met with patient to assess and discuss needs related to feeding. Mother states it is her intention to exclusively BF, she states she was only able to feed her 1st child for 2 months. Mother verbalizes she is able to independently latch infant with no pain so far. Encouraged mother to breastfeed 8-12 times in 24 hours (approximately every 2-3 hours), watching for early feeding cues. If is sleepy, unwrap and place baby skin to skin. Discussed signs that is effectively , i.e. sufficient voids and stools, jaundice within normal limits, <10% weight loss from . Mother educated on milk production, supply and demand, and expectations for in the immediate period. Encouraged feeding on demand and feeding durations of 15 minutes or greater. Discussed breast/nipple care with good hand hygiene, signs of a correct latch, listening for swallows and documenting feedings on the feeding sheet. Mother instructed to call for assistance if will not feed every 3 hours, if there is discomfort with , or if mother has any other questions or concerns. resources provided including the Mom and Baby Guide and name/number on communication board. Mother verbalized understanding. Updated patient?s primary RN with education provided.?
[2024-11-03] MEDS: DOCUSATE SODIUM 100 MG CAPSULE PO (17:06)
[2024-11-03] MEDS: ACETAMINOPHEN 325 MG TABLET 650 MG PO (17:06)
[2024-11-03] MEDS: LANOLIN (LANSINOH) 7.5 GM CREAM 1 APPLIC TOPICAL (17:07)
[2024-11-04 00:08] VITALS: BP 116/71; PULSE 73; RESP 17; TEMP 36.6; O2SAT 98
[2024-11-04] MEDS: CALCIUM CARBONATE (TUMS) 500 MG (200 MG ELEMENTAL) PO (03:58)
[2024-11-04] MEDS: IBUPROFEN 600 MG TABLET PO ×2 (03:59→09:36)
[2024-11-04] MEDS: ACETAMINOPHEN 325 MG TABLET 650 MG PO (04:00)
[2024-11-04 04:57] LABS: Hematocrit 35.1 % (37.0-47.0); Hemoglobin 11.9 g/dL (12.0-15.0)
--- NOTE | 2024-11-04 08:53 | PM.OBDSVD ---
DS: Admitting Diagnosis Discharge Date 11/04/2024 Admitting Diagnosis DS: Discharge Diagnosis Discharge Diagnosis (1) , delivered: Code(s): O80 - Encounter for full-term uncomplicated delivery Status: Acute OB - DS: Summary OB Procedures : None OB Procedures Intrapartum: Spontaneous Vag Delivery OB Procedures: : None Peripartum Data Laceration Description: None Episiotomy description: None Time Spent with Patient Time attestation: Total time spent providing and/or coordinating discharge services: DS: Data Data Completed and Pending Labs on day of discharge: Labs from last 24 hours 11/04/24 03:49 Hgb 11.9 L Hct 35.1 L Blood Type O Negative Antibody Screen Negative Screen Pending Baby's Blood Type Pending Baby's TANESHA Pending Doses of RhIg Required Pending Discharge Plan Discharge Discharging Clinician: Alcides Burkett Patient Disposition: Home, Self-Care Activity: as tolerated Diet: as tolerated Patient Instructions: Antibiotic Form Stand Alone Forms: General Discharge Information Follow-up/Referrals: Edy Damon MD [Physician] - 3 Weeks Discharge Medications: New ibuprofen 600 mg Tablet 600 mg PO Q6H PRN (Reason: Cramping) Qty: 30 0RF Continued ondansetron HCl 4 mg tablet 4 mg PO Q6H PRN (Reason: nausea and vomiting) Qty: 30 1RF triamcinolone acetonide 0.025 % lotion 1 applic topical BID Qty: 60 0RF Classic 28 mg iron- 800 mcg tablet 1 tablet PO DAILY Qty: 90 0RF levothyroxine 25 mcg tablet 25 mcg PO DAILY Qty: 30 2RF Date of admission: 11/02/24 22:24 Primary Care Provider: Reece*,Fernanda Ramirez Admitting Provider: Edy Damon Attending physician on admission: Edy Damon Condition: Stable
[2024-11-04 09:30] VITALS: BP 118/60; PULSE 72; RESP 16; TEMP 36.4; O2SAT 99
[2024-11-04] MEDS: DOCUSATE SODIUM 100 MG CAPSULE PO (09:35)
[2024-11-04] MEDS: MULTIVIT/MIN/PREN/FOL AC/IRON TABLET 1 TAB PO (09:35)
--- NOTE | 2024-11-04 10:23 | PC.NURSE ---
Introductions were made, then consulted with patient to assess needs related to . Mother led the conversation with her?plans to feed?her and the?experience so far. She explains that her nipples are extremely sore (so sore that she is considering giving up on despite her preference to continue). I explained that we will work on her latch today and utilize the tools that we have to help releif her nipple pain. She has been given hydrogel pads, nipple cream and a nipple shield and will call with her next feeding to review applying the nipple shield correctly. Until her next feeding, she was encouraged to apply the hydrogel pads. Instructions were given on pumping during this time, she has brought her pump (Motif) from home and has asked to set the pump up. We set the pump up together and instructions were given on how to use the pump correctly. She is currently using a 21mm flange which is the appropriate size for her. Instructions given on cleaning, care, usage, that there should be no pain, pumping schedule for milk production, collection, and storage of human milk. If pumping begins, mother is encouraged to record the pumping schedule on the feeding sheet.? Next feeding will be observed by this RN, mother understands to call for assistance. Communication board updated.
[2024-11-04] MEDS: LEVOTHYROXINE SODIUM 25 MCG TABLET PO (10:50)
--- NOTE | 2024-11-04 11:10 | PC.NURSE ---
Called to patient room for assistance with latching . Mother states that her nipples are still sore and she would like to use the nipple shield for 1-2 feedings and see if her nipples feel better after those feedings. I demonstrated how to apply the nipple shield onto the nipple. Mother returned demonstration and placed the nipple shield correctly. Once the shield was in place, infant was unwrapped and placed on the right breast in cross cradle position. I reiterated a deep latch is necessary with and without a nipple shield. Discussed with mother positioning of her nipple and infants mouth to accomplish a deep latch. Infant is actively nursing on the right breast and several swallows were noted. Mother states that this feeding isn't painful and she can feel the difference already. This RN will assist with next feeding as well to assure that mothers is correctly latching . Mother will determine if she needs the nipple shield with the next feeding.
--- NOTE | 2024-11-04 11:18 | WPDANLDPN2 ---
Anes-Prog Note L&D Date/Time: 11/04/24 11:18 Comfortable throughout: labor and delivery Neuraxial method: epidural Epidural/Spinal procedure site: clean & non-tender Neuro status: Neuro function grossly intact. Cardiovascular status: normal Respiratory status: normal Airway patency: baseline Mental status: baseline Post-Op hydration status: normal Vital Signs: Last Vital Signs Temp 36.6 C 11/04/24 00:08 Pulse 73 11/04/24 00:08 Resp 17 11/04/24 00:08 BP 116/71 11/04/24 00:08 Pulse Ox 98 11/04/24 00:08 O2 Del Method Room Air 11/04/24 00:08 Pain score (VAS): 2 Post-procedural complaints: none Patient feedback: Patient satisfied with anesthetic care.
[2024-11-04] MEDS: RHO(D) IMMUNE GLOBULIN 300 MCG/2 ML SYRINGE IM (14:47)
--- NOTE | 2024-11-04 15:26 | PC.NURSE ---
Called to bedside to assess latch. Upon entering room, was latched and actively nursing on the right breast in cross cradle position without the nipple shield in place. Mother states that her nipples are not sore anymore and she denies pain or discomfort. is appropriately latched and swallows were noted. Mother will call this RN with any questions or concerns.
[2024-11-07 10:27] VITALS: PULSE 68; RESP 18; TEMP 36.7; O2SAT 100
== END 2024-11-04 17:43 | disposition home or self-care (01) | DRG 560 ==
LOC: ANHLDR 23:45 → ANHOB2 11-03 11:00
PROVIDERS: Admitting Provider Obstetrics & Gynecology; PCP Nurse Practitioner Family; Visit Provider Student in an Organized Health Care Education/Training Program
DX: O26.893 Other specified pregnancy related conditions, third trimester (principal); Z37.0 Single live birth; Z3A.40 40 weeks gestation of pregnancy; O69.81X0 Labor and delivery complicated by cord around neck, without compression, not applicable or unspecified; Z67.91 Unspecified blood type, Rh negative
CPT/HCPCS: 36415; 85014; 85018; 85025; 85461; 86592; 86703; 86850; 86900; 86901; 90384; A9270; G0432; J2590; J2790; J2795; J7120

== ENCOUNTER 2025-01-11 00:11 | Day surgery (SDC) | payer OTHER, SELFPAY ==
[2024-12-28 10:04] VITALS: BMI 19.4
--- NOTE | 2024-12-28 10:05 | SUR.PREOP ---
Report to the Outpatient Waiting Room, entrance under the green pavilion located off [facility], at time 11:30a.m. on date 01/11/2025. Planned Procedure Time: 1:30p.m..? Time changes happen often and if your time is changed the preop area will call you the afternoon before. - You and your visitor will be asked to self-screen and do not enter if you have any COVID symptoms. Please call surgeon if you need to reschedule. - A mask is optional within the hospital at this time. Patients may have clear liquids (water, carbonated beverages, clear teas, apple juice) until 3 hours prior to surgery with a maximum of 20 ounces. - No food from midnight until time of surgery and no smoking. This includes no chewing gum, candy or mints. - Infants may have breast milk until 4 hours before surgery, infant formula 6 hours prior to surgery. - Children will be allowed to drink immediately following surgery.? If applicable, please bring a bottle or sippy cup to assist with drinking. Juice, water, soda, and popsicles are readily available.? For infants on formula, please bring formula the day of surgery.? Pacifiers are allowed. Take only the following medications with a SIP of water on the morning of surgery: levothyroxine, sertraline DO NOT STOP ANY OF YOUR OTHER PRESCRIPTION MEDICATIONS PRIOR TO SURGERY EXCEPT THE FOLLOWING Medications to discontinue per physician vitamins Date to take last dose 01/08/2025 Please no make-up, nail argentine, hairspray, perfume, deodorant, or body powder the day of surgery.? No jewelry (including any body piercings) or valuables the day of surgery, leave them at home.? Please take a shower or bath the night before, or the morning of, surgery with an antibacterial soap.? Wear comfortable, loose fitting clothing.? Children are encouraged to wear pajamas. - Jewelry must be removed prior to entering the operating room.? Rings and piercings that are not removed may be cut off. - The hospital will not accept responsibility for valuables.? - Please leave all valuables, including medications, at home the day of surgery. If you are going home after surgery, a licensed tour driver must drive you home.? - NO public transportation without another adult if you receive anesthesia. - We recommend that an adult stay with you for 24 hours following discharge. - We also recommend that you do not drive, make important decision, drink alcoholic beverages, or take any drugs that were not prescribed by your health care provider for at least 24 hours after your discharge time. For Pediatric surgeries, we recommend two adults accompany the child home. Hold all vitamins and supplements for 3 days per anesthesiologist. Follow any additional instructions given to you from your surgeon. Telephone instructions given to Nancie Zamora and asked if any additional questions and then verbalized understanding. Patient advised to call surgeon office or pre surgery nurse liaison [phone] if any additional questions.
[2025-01-11] VITALS (9 sets, daily range): BP systolic 100–119; BP diastolic 55–77; PULSE 46–66; RESP 10–16; TEMP 36.2–36.4; O2SAT 99–100
--- OUTSIDE RECORDS SUMMARY | 2025-01-11 00:14 | XMS_ITS | Continuity of Care Document ---
Author Organization [facility] Address [address] [facility] [address] [place] [address] Phone Care Team Providers Care Crocheter Hand Name Role Phone Maynard OD, Dereje Unavailable Unavailable Procedures Procedure Date Eye Exam & Treatment Refraction Eye Exam & Treatment Advance Directives Directive Yes / No Effective Date File Name No Information Encounters Encounter Description Practice Location Reason(s) For Visit Diagnoses Date Provider Providers Copied on Encounter [facility], [address] [place] [address] [address], [place], [place], [id number], tel:[phone] [facility] No Information 4-200 8 Maynard OD Dereje. [address], [address], [place], [address], [place]. tel:[phone] [facility], [address] [place] [address] [address], [place], [place], [id number], tel:[phone] [facility] No Information 2-200 7 Maynard OD Dereje. [address], [place], [address], [place]. tel:[phone] Family History Family Member Type Diagnosis Age At Onset No Information Payers Payer name Insurance type Covered libertarian ID Authoriza tion(s) Medicaid FORMERLY [facility] [id number] Social History Type Description Quantity Date Captured Comments Sex Female Smoking Status No Information Chief Complaint And Reason For Visit No Information Reason For Referral Reason For Referral No Information History Of Present Illness Encounter Date Complaint History Of Prese nt Illness No Information Functional Status Date Functional Assessmen t No Information Instructions Date Instruction Additional Infor mation No Information Assessments Type Assessment Date No Information Patient Care Teams Name Effective Dates (start - stop) Status Members No Information
--- OUTSIDE RECORDS SUMMARY | 2025-01-11 00:14 | XMS_ITS | Referral Summary ---
Author Organization [facility] Address [address] [place] [id number] Care Team Providers Care Robotics Application Engineer Name Role Phone Dereje Rocha MD Primary Care Provider [phone] SariLubna MD Unavailable [phone] Allergies No known active allergies Medications No known medications Active Problems Problem Noted Date Diagnosed Date Family history of breast cancer 10/13/2023 Social History Tobacco Use Types Packs/Day Years Used Date Smoking Tobacco: Former Cigarettes Q uit: 2021 Smokeless Tobacco: Current Tobacco Cessation:Ready to Q uit: Not Asked; Counseling Given: Not Answered Comments Unknown Sex and Gender Information Value Date Recorded Sex Assigned at Not on file Legal Sex Female 8:17 AM [employer] Gender Identity Not on file Sexual Orientation Not on file Last Filed Vital Signs Vital Sign Reading Time Taken Comments Blood Pressure 114/79 10/13/2023 12:03 PM [employer] Pulse 82 10/13/2023 12:03 PM [employer]LECTR[employer] Temperature 36.7 C (98.1 F) 10/13/2023 12:03 PM [employer] Respiratory Rate 17 10/13/2023 12:03 PM [employer]LECTR[employer] Oxygen Saturation 99% 10/13/2023 12:03 PM [employer]LECTR[employer] Inhaled Oxygen Concentration - - Weight 52 kg (114 lb 9.6 oz) 10/13/2023 12:03 PM [employer] Height 172.7 cm (5' 8 ) 10/13/2023 12:03 PM [employer]LECT[employer] Body Mass Index 17.42 10/13/2023 12:03 PM ELECTROPLATER [employer]IC Plan of Treatment Not on file Insurance IDPA [facility] [employer] [employer] IDPA Care Teams Robotics Application Engineer Relationship Specialty Start Date End Date Dereje Rocha MD PCP - General Obstetrics and Gynecology 12/23/20 SariLubna MD [address] [facility] DIV IM MEDICAL ONCOLOGY, [facility] [address] [place] [address] Surgeon Breast Surgery 08/25/23
--- OUTSIDE RECORDS SUMMARY | 2025-01-11 00:14 | XMS_ITS | Referral Summary ---
Author Organization [facility] Address [address] [place] [address] Care Team Providers Care Drying Equipment Operator Name Role Phone Unavailable Primary Care Provider Unavailabl e Source Comments [facility],non-owned Affiliates and Associated Physician Practices is amultiple site organization consisting of ambulatory clinics and hospital sitesin [place], [place], [place] and [place]. This disclosure is being madepursuant to the Care Everywhere program and may not contain all information available regarding this patient. Last updated 18.[facility] Allergies No known active allergies Medications * Be aware that medications may not be up to date on this document. Alwaysverify current medications with the patient. Medication Sig Dispensed Refills Start Date End Date Status Vit-Fe Fumarate-FA ( vitamin) 28-0.8 MG tablet Take 1 (one) tablet by mouth once daily Active levothyroxine (Synthroid) 25 MCG tablet Take 1 (one) tablet by mouth daily before breakfast Active Active Problems Problem Noted Date Diagnosed Date Thyroid dysfunction in 09/20/2024 Overview (09/20/2024): TSH 0.249 and fT4 0.78 on outside testing No family history of thyroid disorders. No symptoms related to hypo- or hyperthyroidism Thyroid function testing can be altered in due to differences in protein binding, although these tests remain good screening tests for the majority of patients. With both a low TSH and fT4, but no symptoms of thyroid dysfunction, this may represent testing challenges associated with . However, repeat labs are needed to exclude other conditions PLAN: Repeat thyroid testing today (TSH, free and total T4 and T3) If normal results for , no follow up is needed. Would recommend TSH for health maintenance purposes. If tests remain abnormal, we will schedule additional testing and imaging as needed. Estimated Date of Delivery Comme nts Yes 11/03/2024 Based on Ultraso und Social History Tobacco Use Types Packs/Day Years Used Date Smoking Tobacco: Former Cigarettes 1 3.1 S tarted: 2021 Smokeless Tobacco: Never Tobacco Cessation:Counseling Given: Not Answered Alcohol Use Standard Drinks/Week Comments Not Currently 0 (1 standard drink = 0.6 oz pur e alcohol) Estimated Date of Delivery Comme nts Yes 11/03/2024 Based on Ultraso und Sex and Gender Information Value Date Recorded Sex Assigned at Not on file Gender Identity Not on file Sexual Orientation Not on file Last Filed Vital Signs Vital Sign Reading Time Taken Comments Blood Pressure 113/77 09/20/2024 9:32 AM CDT Pulse 97 09/20/2024 9:32 AM CDT Temperature - - Respiratory Rate - - Oxygen Saturation - - Inhaled Oxygen Concentration - - Weight 66.2 kg (146 lb) 09/20/2024 9:32 AM CDT Height 170.2 cm (5' 7 ) 09/20/2024 9:32 AM CDT Body Mass Index 22.87 09/20/2024 9:32 AM CDT Plan of Treatment Not on file Nancie Zamora I Personal/Family Self 2000
--- OUTSIDE RECORDS SUMMARY | 2025-01-11 00:14 | XMS_ITS | Clinical Summary ---
Author Organization [facility] Address [address] [place] [address] Care Team Providers Care Game Bird Farmer Name Role Phone Unavailable Primary Care Provider Unavailabl e Source Comments [facility],non-owned Affiliates and Associated Physician Practices is amultiple site organization consisting of ambulatory clinics and hospital sitesin [place], [place], [place] and [place]. This disclosure is being madepursuant to the Care Everywhere program and may not contain all information available regarding this patient. Last updated 18.[employer] Allergies No known active allergies Medications * [...] nts Yes 11/03/2024 Based on Ultraso und Family History Medical History Relation Name Comments Diabetes - Type 2 Mother Diabetes - Type 2 Sister 1 Relation Name Status Comments Father Alive Mother Alive Sister 1 Alive Sister 2 Alive Social History Tobacco Use Types Packs/Day Years [...] 09/20/2024 9:32 AM CDT Plan of Treatment Health Maintenance Due Date Last Done Comments PAP SMEAR 2000 HIV SCREENING 2013 HPV VACCINE (1 - 3-dose series) 2013 HEPATITIS C SCREENING 03/22/2016 DTAP/TDAP/TD VACCINES (1 - Tdap) 2017 HEPATITIS B VACCINE (1 of 3 - 19+ 3-dose series) 2017 OB-ONE HOUR GLUCOSE 07/28/2024 COVID-19 VACCINE (1 - 2023-2 5 season) 2024 INFLUENZA VACCINE (#1) 2024 2, 12/03/2014 OB-TDAP CURRENT 08/04/2024 OB-RHOGAM INJECTION 08/11/2024 OB-GROUP B STREP SCREEN 09/29/2024 DEPRESSION SCREENING 11/29/2024 ZOSTER VACCINE (1 of 2) 2048 HIB VACCINE Aged Out No longer eligi ble based on patient's age to complete this topic MENINGOCOCCAL (Group B) VACCINE Aged Out No longer eligible b ased on patient's age to complete this topic MENINGOCOCCAL VACCINE Aged Out No andrzej chato eligible based on patient's age to complete this topic PNEUMOCOCCAL VACCINE Aged Out No long er eligible based on patient's age to complete this topic Respiratory Syncytial Virus (RSV) Vaccine Pt: or over 60 yrs (No Doses Required) Completed Nancie Zamora I Personal/Family Self 2000
--- OUTSIDE RECORDS SUMMARY | 2025-01-11 00:14 | XMS_ITS | Clinical Summary ---
Author Organization [facility] Address [address] [place] [address] Care Team Providers Care Clearance Diver Name Role Phone Dereje Rocha MD Primary Care Provider [phone] SariLubna MD Unavailable [phone] Allergies No known active allergies Medications No known medications Active Problems Problem Noted Date Diagnosed Date Family history of breast cancer 10/13/2023 Surgical History Surgery Date Site/Laterality Comments KIDNEY SURGERY 08/29/2017 - 09/28/2017 Medical History Medical History Date Comments History of kidney surgery right Anxiety Depression Family History Medical History Relation Name Comments Colon cancer Father's Brother maría Breast cancer Mother Xiao Higgins negativ e Colon cancer Paternal Grandmother Relation Name Status Comments Father's Brother maría Alive Mother Xiao Paternal Grandmother Social History Tobacco Use Types Packs/Day Years Used Date Smoking Tobacco: Former Cigarettes Q uit: 2021 Smokeless Tobacco: Current Tobacco Cessation:Ready to Q uit: Not Asked; Counseling Given: Not Answered Comments Unknown Sex and Gender Information Value Date Recorded Sex Assigned at Not on file Legal Sex Female 8:17 AM [employer] Gender Identity Not on file Sexual Orientation Not on file Obstetrics History Last Filed Vital Signs Vital Sign Reading Time Taken Comments Blood Pressure 114/79 10/13/2023 12:03 PM [employer] Pulse 82 10/13/2023 12:03 PM [employer] Temperature 36.7 C (98.1 F) 10/13/2023 12:03 PM [employer] Respiratory Rate 17 10/13/2023 12:03 PM [employer] Oxygen Saturation 99% 10/13/2023 12:03 PM [employer] Inhaled Oxygen Concentration - - Weight 52 kg (114 lb 9.6 oz) 10/13/2023 12:03 PM [employer] Height 172.7 cm (5' 8 ) 10/13/2023 12:03 PM [employer] Body Mass Index 17.42 10/13/2023 12:03 PM [employer] Plan of Treatment Health Maintenance Due Date Last Done Comments Cervical Cancer Screening 1998 Depression Screening 1998 Hepatitis C Screening 1998 DTaP/Tdap/Td Vaccine (6 - Tdap) 2009 10/17/2002, 03/04/2001, 1998, Additional history exists Varicella Vaccines (1 of 2 - 13+ 2-dose series) 2011 Regular Well Visit/Exam 18-64 2016 Influenza Vaccine (#1) 2024 12/14/2014, 2014 HPV Vaccines Completed 05/03/2018, 06/28/2012 Pneumococcal vaccine <65 Aged Out No longer eligible based on patient's age to complete [place] [address] [facility] [employer]CIAL GENERIC IDPA Care Teams Clearance Diver Relationship Specialty Start Date End Date Dereje Rocha MD PCP - General Obstetrics and Gynecology 12/23/20 Lubna Guo MD [address] [facility] [address] DIV IM MEDICAL ONCOLOGY, [address] [place] [address] Surgeon Breast Surgery 08/25/23
--- OUTSIDE RECORDS SUMMARY | 2025-01-11 00:14 | XMS_ITS | Patient Health Summary ---
Author Organization [facility] Address [address] [place] [address] Care Team Providers Care Principal Java Software Engineer Name Role Phone Unavailable Primary Care Provider Unavailabl e Note from [facility],non-owned Affiliates and Associated Physician Practices is amultiple site organization consisting of ambulatory clinics and hospital sitesin [place], [place], [place] and [place]. This disclosure is being madepursuant to the Care Everywhere program and may not contain all information available regarding this patient. Last updated 18.[facility] Allergies No known active allergies Medications * Be aware that medications may not be up to date on this document. Alwaysverify current medications with the patient. * Vit-Fe Fumarate-FA ( vitamin) 28-0.8 MG tablet Take 1 (one) tablet by mouth once daily * levothyroxine (Synthroid) 25 MCG tablet Take 1 (one) tablet by mouth daily before breakfast Active Problems Problem Noted Date Diagnosed Date Thyroid dysfunction in 09/20/2024 Social History Tobacco Use Types Packs/Day Years [...] Mass Index 22.87 09/20/2024 9:32 AM CDT Procedures * SONOGRAM - COMPLETE(Performed 09/20/2024) Performed for Subclinical hypothyroidism, Second (HCC), 33 weeks gestation of (HCC), Encounter for ultrasound to assess growth ([facility]) Results * SONOGRAM - COMPLETE (09/20/2024 9:02 AM CDT) Anatomical Region Laterality Modality Other 09/20/2024 9:02 AM CDT Narrative 09/20/2024 11:06 AM CDT [facility] [place] PHONE: FAX: Pat. Name: KYLIE ZAMORA I Pat. No: [id number] Study Date: 09/20/2024 9:02am , Age: 04 2000, 24 Pregnancies: 2, Para 1001 Height: 67 in Weight: 115 lb LMP: Unknown GA by US: 34w3d KEYLA: 10/29/2024 GA Selected: 33w5d (From Known E) KEYLA: 11/03/2024 Referring MD: Edy Damon MD [employer] Officer: Olivia Triplett RDMS CPT4: 89275 BMI: 18.01 Hist/Ind: Abnormal thyroid testing MEASUREMENTS & AGE GROWTH EVALUATION Measurement GA Range Srce %for GA Ratios ----- ---- ------- BPD 8.9 cm 35w6d (05k2r-91a9z) Hadl BPD 93% FL/BPD 0.73 (0.71 - 0.87) HC 31.1 cm 34w5d (64k0w-50o8v) Hadl HC 41% FL/AC 0.22 (0.20 - 0.24) AC 29.9 cm 33w6d (61r1y-01k1d) Hadl AC 59% HC/AC 1.04 (0.95 - 1.13) FL 6.5 cm 33w3d (34p1k-48z7s) Hadl FL 32% CI 0.83 (0.70 - 0.86) HL 5.7 cm 32w6d (52p6y-52c5p) Bk HL 35% Cere 4.8 cm 36w0d (26i1p-94w5z) Edmond Cere85% GA for sonogram 34w3d (36o5u-09b9y) Weight Estimate: based on (BPD,HC,AC,FL) Avg Weight: 2334 gm (1993-2674gm) Had : 5lbs, 2oz Normal: 2316 gm (1737-2894gm) Had Wt% 53% for 33w5d Heart Rate: 138 bpm Amniotic Fluid Index: 15.3cm (08.2-24.7) Q1: 6.3cm Q2: 3.2cm Q3: 3.4cm Q4: 2.3cm PROCEDURE, TECHNIQUE Technique: transabdominal EVAL, PLACENTA Presentation: cephalic Umbilical Cord: 3 Vessels Placenta: anterior Heart Rate: 138 bpm Amniotic Fluid Volume: normal MATERNAL ANATOMY Right Desc: Appears normal Left Desc: Suboptimal Anatomy!Normal!Abnormal!Suboptimal!Prev. Seen!Comments Cranium ! x ! ! ! ! Mdl (CSP/Thal! x ! ! ! ! Ventricles ! x ! ! ! ! Choroid Plexu! x ! ! ! ! Cerebellum ! x ! ! ! ! Cisterna M. ! x ! ! ! ! Orbits ! x ! ! ! ! Profile ! x ! ! ! ! Nasal Bone ! x ! ! ! ! Lip ! x ! ! ! ! Spine ! x ! ! ! ! Lungs ! x ! ! ! ! 4 Chamber Hea! x ! ! ! ! LVOT ! x ! ! ! ! RVOT ! x ! ! ! ! 3 Vessel View! x ! ! ! ! 3 Vessel Trac! x ! ! ! ! Cross-over ! x ! ! ! ! Ductal Arch ! x ! ! ! ! Aortic Arch ! x ! ! ! ! Caval View ! x ! ! ! ! Situs ! x ! ! ! ! Diaphragm ! x ! ! ! ! Stomach ! x ! ! ! ! Bowel ! x ! ! ! ! Kidneys ! x ! ! ! ! Bladder ! x ! ! ! ! 3 Vessel Cord! x ! ! ! ! Cord In! x ! ! ! ! Upper Extremi! x ! ! ! ! Hands ! ! ! x ! ! Lower Extremi! x ! ! ! ! Feet ! x ! ! ! ! External Emily! x ! ! ! !Male Placental Cor! x ! ! ! ! Maternal Adne! x ! ! ! ! CLINICAL SUMMARY A single fetus is seen in cephalic presentation. The measurements today are consistent with appropriate size for established KEYLA. The KEYLA is based on a prior ultrasound examination (confirmed). The amniotic fluid volume is within normal limits. The hands were suboptimally seen today, but upper extremities were noted to be normal on outside ultrasound. The remainder of the anatomy appears to be normal within limits of ultrasound. IMPRESSION: Single, live, intrauterine at 33w5d size is consistent with established KEYLA Fetus measures 34w3d, EFW 53%, AC 59% Amniotic fluid volume: within normal limits No major malformations were seen within the limitations of ultrasound. RECOMMEND: Follow up as clinically indicated. Thank you for allowing us the opportunity to care for your patient. Henri Garcia MD <Electronic Signature> 09/20/2024 11:06am Edy Damon MD [facility] ORDERABLES
--- NOTE | 2025-01-11 11:46 | P.HP_ITS ---
H&P: HPI History of Present Illness Date/Time: 01/11/25 11:46 Chief Complaint: abnormal uterine bleeding Desires permanent sterilization Narrative: 24-year-old who presents for hysteroscopy, D&C, endometrial ablation for abnormal uterine bleeding and laparoscopic bilateral salpingectomy for permanent sterilization. Review of Systems Cardiovascular: Cardiovascular: Denies chest pain, Denies leg edema, Denies palpitations, Denies dyspnea and Denies dyspnea on exertion Respiratory: Respiratory: Denies cough, Denies dyspnea and Denies dyspnea on exertion Gastrointestinal: Gastrointestinal: Denies abdominal pain, Denies constipation, Denies diarrhea, Denies nausea and Denies vomiting Genitourinary: Genitourinary: Denies hematuria, Denies urinary frequency, Denies dysuria, Denies pelvic pain, Denies urinary incontinence and Denies vaginal discharge Neurologic: Reports system reviewed and no additional complaints, except as documented Psychiatric: Psychiatric: Reports no additional psychiatric complaints Endocrine: Endocrine: Denies palpitations PMFSH Past Medical History Medical History Encounter for removal of intrauterine contraceptive device Encounter for insertion of intrauterine contraceptive device Irregular periods Kidney disease (~04/29/18) clogged kidney Anxiety and depression Surgical History Surgical History H/O gynecological procedure Mirena IUD removal 12/08/23 Family History Family History Mother Diabetes mellitus Breast cancer, Onset Age: 45 Grandparent Diabetes mellitus Sibling Diabetes mellitus Social History Social History Smoking packs per day: 0.5 Smoking cigarettes per day: 10.0 Smoking status: Former smoker Tobacco type: e-cigarettes/vaping Second hand tobacco smoke exposure: No Smoking end date: 01/20/22 Alcohol intake: never Substance use: never Substance use type: does not use Do You Feel Safe in your Home?: Yes Lack of Transportation: No Lack of Food: Never True Current Housing: I Have Housing Concerned About Future Housing: No Difficulty Paying Gas/Electric Bills: No Difficulty Paying for Meds: No Currently Unemployed: No Education: Grade School Difficulty w/ Childcare or Family Care: No Living arrangements: with family Occupation/Education: occupation Additional occupation/education comments: [employer] Gender identity (if verbalized by the patient): Female Sexual Orientation (if Verbalized by the Patient): Straight or Heterosexual Spiritual care concerns: No Meds Home Medications and Allergies Home Medications ?Medication ?Instructions ?Recorded ?Confirmed ?Type levothyroxine 25 mcg tablet 25 mcg PO DAILY #30 tabs 10/18/24 12/28/24 Rx sertraline 50 mg tablet 50 mg PO DAILY #90 tabs 11/06/24 12/28/24 Rx vits no.126-ferrous fum 1 tablet PO DAILY #90 tabs 12/01/24 12/28/24 Rx 28 mg iron-folic acid 800 mcg tablet (Classic ) Allergies Allergy/AdvReac Type Severity Reaction Status Date / Time No Known Allergies Allergy Verified 12/28/24 09:55 Exam Const: General: no acute distress Eyes: EOM: EOMs intact bilaterally Neck: Neck: supple Thyroid: thyroid normal Chest: Breast/axilla inspection: normal inspection of the breasts [place] st/axilla palpation: normal palpation of the breasts, normal palpation of the axillae and no axillary lymphadenopathy Resp: Effort & Inspection: normal respiratory effort Auscultation: clear to auscultation bilaterally Cardio: Rate: regular rate Rhythm: regular rhythm GI: Inspection: non-distended GI Palp: Yes Soft to palpation, No Tenderness to palpation present (GI) and No Guarding due to palpation present (GI) Auscultation: normal bowel sounds : General: No bladder normal to palpation External Female Exam: normal external appearance Speculum Exam - Vagina: normal vaginal discharge and No vaginal bleeding Speculum Exam - Cervix: nontender Bimanual exam- vagina & uterus: No bladder normal to palpation and No Cervical tenderness present OB/external & speculum: No vaginal bleeding Skin: General skin exam: normal color and no rashes or lesions noted Neuro: Cognition (Neuro): normal cognition Speech: normal speech Extrem: General: normal to inspection and no edema Psych: Mental Status: mental status grossly normal Affect: normal affect Assessment and Plan Assessment and plan (1) Encounter for sterilization: Code(s): Z30.2 - Encounter for sterilization Status: Acute Assessment and Plan: 24-year-old female who presents for laparoscopic bilateral salpingectomy for permanent sterilization Risks, benefits, alternatives reviewed Patient consents for permanent sterilization via bilateral salpingectomy (2) Abnormal uterine bleeding (AUB): Code(s): N93.9 - Abnormal uterine and vaginal bleeding, unspecified Status: Acute Assessment and Plan: Patient reports heavy prolonged menses Patient has tried IUD in the past Patient is interested in surgical management via endometrial ablation Risks, benefits, alternatives reviewed Patient consented for hysteroscopy, D&C, endometrial ablation
[2025-01-11] MEDS: LACTATED RINGERS 1,000 ML 30 ML IV CONT (13:10)
[2025-01-11] MEDS: ACETAMINOPHEN 500 MG TABLET 1000 MG PO (13:11)
[2025-01-11] MEDS: KETOROLAC 15 MG/ML VIAL (*BKC) IV PUSH (13:11)
[2025-01-11 13:19] LABS: BEDSIDEPREGUCG Negative (Negative)
--- NOTE | 2025-01-11 13:43 | P.PNAN_ITS ---
Anes - Initial Pre Proc Eval Procedure: Operation Date: 01/11/25 13:30 Proposed Procedures p Hysteroscopy Dilation and Curettage with Ema Endometrial Ablation, - Edy Damon MD s Bilateral Laparoscopic Salpingectomy - Edy Damon MD Date/Time: 01/11/25 13:43 Surgeon: Edy Damon MD Pre Op Diagnosis: abnormal uterine bleeding, desires sterilization Patient Data Age: 24 Gender: F Height: 1.7 m Weight: 56.7 kg Last Vital Signs Temp 36.4 C 01/11/25 13:13 Pulse 54 L 01/11/25 13:13 Resp 16 01/11/25 13:13 BP 102/69 01/11/25 13:13 Pulse Ox 99 01/11/25 13:13 Allergies Allergy/AdvReac Type Severity Reaction Status Date / Time No Known Allergies Allergy Verified 12/28/24 09:55 Home Medications ?Medication ?Instructions ?Recorded ?Confirmed ?Type levothyroxine 25 mcg tablet 25 mcg PO DAILY #30 tabs 10/18/24 01/11/25 Rx sertraline 50 mg tablet 50 mg PO DAILY #90 tabs 11/06/24 01/11/25 Rx vits no.126-ferrous fum 1 tablet PO DAILY #90 tabs 12/01/24 01/11/25 Rx 28 mg iron-folic acid 800 mcg tablet (Classic ) Laboratory Tests 01/11/25 13:13 POC Urine HCG, Qual Negative (Negative) Patient hx anesthesia problems: none Family hx anesthesia problems: none Results Review: All pre-operative results and documents have been reviewed as part of the pre- operative evaluation. [facility] Past Medical History Medical History Encounter for removal of intrauterine contraceptive device Encounter for insertion of intrauterine contraceptive device Irregular periods Kidney disease (~04/29/18) clogged kidney Anxiety and depression Surgical History Surgical History H/O gynecological procedure Mirena IUD removal 12/08/23 Family History Family History Mother Diabetes mellitus Breast cancer, Onset Age: 45 Grandparent Diabetes mellitus Sibling Diabetes mellitus Social History Social History Smoking packs per day: 0.5 Smoking cigarettes per day: 10.0 Smoking status: Former smoker Tobacco type: e-cigarettes/vaping Second hand tobacco smoke exposure: No Smoking end date: 01/20/22 Alcohol intake: never Substance use: never Substance use type: does not use Do You Feel Safe in your Home?: Yes Lack of Transportation: No Lack of Food: Never True Current Housing: I Have Housing Concerned About Future Housing: No Difficulty Paying Gas/Electric Bills: No Difficulty Paying for Meds: No Currently Unemployed: No Education: Grade School Difficulty w/ Childcare or Family Care: No Living arrangements: with family Occupation/Education: occupation Additional occupation/education comments: [employer] Gender identity (if verbalized by the patient): Female Sexual Orientation (if Verbalized by the Patient): Straight or Heterosexual Spiritual care concerns: No Anes - Eval Final PreProcedure Day of Procedure 01/11/25 13:43 Patient weight: normal Heart: regular rate and rhythm Lungs: clear to auscultation Airway: Mallampati scale class II Neurological: alert and oriented Last oral intake: >/= 8 hours ASA classification: II Emergent: no Anesthetic plan: proceed Anesthesia type and monitoring: general ETT and standard monitoring Results Review: All pre-operative results and documents have been reviewed as part of the pre- operative evaluation. Informed Consent: The patient's anesthetic plan and its attendant risks and benefits were discussed with the patient/family/POA. Questions were solicited and answers provided to the satisfaction of the patient/family/POA.
--- NOTE | 2025-01-11 14:24 | WPDHPUPDATE1 ---
History and Physical Update Update Date/Time: 01/11/25 14:24 History and Physical has been reviewed, including an updated exam of the patient. There are NO changes in the patient's condition. Risks, benefits, and alternatives have been discussed and questions answered. Patient agrees to proceed with procedure.
[2025-01-11] MEDS: LIDO 1%/EPINEPHRINE 1:100,000 50 ML VIAL 12 ML INFILTRATE (14:50)
--- NOTE | 2025-01-11 15:34 | P.OP_ITS ---
Procedure Note - Detailed Date of Procedure 01/11/25 Pre-op Diagnosis abnormal uterine bleeding, desires sterilization Post-op Diagnosis Same Procedure Performed laparoscopic bilateral salpingectomy hysteroscopy D&C Surgeon Edy Damon MD Anesthesia General Indications desires permanent sterilization abnormal uterine bleeding Findings normal appearing uterus, bilateral fallopian tubes and ovaries Description of Procedure the patient was taken to the operating room where general endotracheal anesthesia was undertaken and found to be adequate. She was then prepped and draped in the dorsal lithotomy position. A pre-operative team brief and time- out were completed. A speculum was placed to visualize the cervix. A single tooth tenaculum was placed on the anterior lip of the cervix. The uterus sounded to 7.5 cm. The cervix was dilated with sequential Stephanie dilators. Hysteroscopy, using a normal saline medium, was performed and showed the above findings. Sharp uterine curettage was then performed and tissue placed on Telfa. The Ema ablation device was set to 5.5cm. The device was introduced into the uterine cavity and deployed. The device failed to pass a cavity assessment x 2. Decision was made to proceed to the laparoscopic portion of the procedure to evaluate for uterine perforation. A catheter was placed to drain the bladder. Speculum was placed in the vagina and the cervix was identified. An acorn uterine manipulator was placed as well as single-tooth tenaculum on the anterior lip of the cervix. Attention was then turned to the abdomen which was anesthetized umbilical he with injected anesthetic. A 5 mm skin incision was made in the umbilicus. A 5 mm optical trocar was then placed with direct visualization of the abdominal layers during placement. The trocar stylette was removed and the camera was used to verify intra-abdominal placement.deyanira was used to verify intra-abdominal placement. CO2 insufflation was then connected and The abdominal cavity was insufflated. General abdominal and pelvic survey was performed. Two other laparoscopic port site incisions were made approximately 2 cm superior and medial of the ASIS bilaterally. The pelvic cavity had a small amount of bloody fluid. The uterus was lifted from the pelvis and a perforation was noted at the apex of the fundus. The pelvis was copiously irrigated. No active bleeding was noted from the uterine perforation. The bowel was inspected and no injury was appreciated. Both fallopian tubes were inspected and identified out to the level of the fimbriae. The Fimbriated end of the left fallopian tube was then grasped with a blunt grasper. the fallopian tube was then transected along its inferior aspect along the mesosalpinx with the LigaSure device. Transection was carried out to the fallopian tubes insertion into the uterine fundus. The fallopian tube was then completely transected from the uterus using the LigaSure device. This procedure was repeated for the right fallopian tube. Good hemostasis was maintained throughout. The transected portions of the fallopian tube were removed from the abdomen through the 5 mm laparoscopic port. The surgical field was inspected and again could hemostasis was noted. At this point the procedure was ended. The abdomen was desufflated. All laparoscopic ports were removed from the abdomen. Abdominal incisions were closed with 4-0 Vicryl in a subcuticular fashion.. The acorn manipulator and tenaculum were removed from the vagina. The cervix was inspected and a laceration was noted at the tenaculum placement site. The laceration was made hemostatic with 3-0 vicryl in a running fashion. Sponge, lap and needle counts were correct. The patient tolerated the procedure well. The patient was taken out of dorsal lithotomy. anesthesia was reversed. The patient was taken to PACU in stable condition. Estimated Blood Loss 150 Urine Output 150 Drains No Packing No Pathology Yes ( Bilateral fallopian tubes) Complications Other complications (uterine perforation, cervical laceration) Condition Stable Disposition PACU [facility] Billing Surgery - Charge Forward: Surgery Billing
[2025-01-11] MEDS: oxyCODONE HCL (*CRX) 5 MG TAB IR PO (16:51)
== END 2025-01-11 17:44 | disposition home or self-care (01) ==
PROVIDERS: PCP Nurse Practitioner Family; Visit Provider Student in an Organized Health Care Education/Training Program
PROC: 0U5B8ZZ Destruction of Endometrium, Via Natural or Artificial Opening Endoscopic (ICD-10-PCS; CPT 58563; principal; 2025-01-11 13:30)
PROC: (CPT 49320; 2025-01-11 13:30)
DX: Z30.2 Encounter for sterilization (principal); N83.8 Other noninflammatory disorders of ovary, fallopian tube and broad ligament; N28.9 Disorder of kidney and ureter, unspecified; F41.8 Other specified anxiety disorders; Z98.890 Other specified postprocedural states; Z87.891 Personal history of nicotine dependence; Z80.3 Family history of malignant neoplasm of breast
CPT/HCPCS: 58558; 58661; 88302; 88305; A9270; J0330; J1100; J1885; J2003; J2004; J2250; J2405; J2704; J3010; J7120

== ENCOUNTER 2025-03-29 12:27 | Outpatient (CLI) | payer OTHER, SELFPAY ==
[2025-03-29 13:04] LABS: Hematocrit 40.8 % (37.0-47.0); Hemoglobin 13.3 g/dL (12.0-15.0)
== END 2025-03-29 12:28 | disposition home or self-care (01) ==
LOC: ANHSURGERY 12:31
PROVIDERS: PCP Nurse Practitioner Family; Visit Provider Student in an Organized Health Care Education/Training Program
DX: N93.9 Abnormal uterine and vaginal bleeding, unspecified (principal)
CPT/HCPCS: 36415; 85014; 85018

== ENCOUNTER 2025-04-05 00:33 | Day surgery (SDC) | payer OTHER, SELFPAY ==
[2025-03-29 10:45] VITALS: BMI 19.4
--- NOTE | 2025-03-29 10:51 | PC.NURSE ---
Report to the Outpatient Waiting Room, entrance under the green pavilion located off [facility], at time _1230_ on date _[id number]_. Planned Procedure Time: _230pm_.? Time changes happen often and if your time is changed the preop area will call you the afternoon before. - You and your visitor will be asked to self-screen and do not enter if you have any COVID symptoms. Please call surgeon if you need to reschedule. - A mask is optional within the hospital at this time. Patients may have clear liquids (water, carbonated beverages, clear teas, apple juice) until 3 hours prior to surgery with a maximum of 20 ounces. - No food from midnight until time of surgery and no smoking, or chewing tobacco (or any form of nicotine). No chewing gum, candy or mints. Take only the following medications with a SIP of water on the morning of surgery: ___Levothyroxine and Sertraline.__ DO NOT STOP ANY OF YOUR OTHER PRESCRIPTION MEDICATIONS PRIOR TO SURGERY EXCEPT THE FOLLOWING Hold all vitamins and supplements for 3 days per anesthesiologist. Medications to discontinue per physician Date to take last axss___[id number]___ Please no make-up, nail albanian, hairspray, perfume, deodorant, or body powder the day of surgery.? No jewelry (including any body piercings) or valuables the day of surgery, leave them at home.? Please take a shower or bath the night before, or the morning of, surgery with an antibacterial soap.? Wear comfortable, loose fitting clothing. - Jewelry must be removed prior to entering the operating room.? Rings and piercings that are not removed may be cut off. - The hospital will not accept responsibility for valuables.? - Please leave all valuables, including medications, at home the day of surgery. If you are going home after surgery, a licensed frontload driver must drive you home.? - NO public transportation without another adult if you receive anesthesia. - We recommend that an adult stay with you for 24 hours following discharge. - We also recommend that you do not drive, make important decision, drink alcoholic beverages, or take any drugs that were not prescribed by your health care provider for at least 24 hours after your discharge time. Follow any additional instructions given to you from your surgeon. Telephone instructions given to __Amie__and asked if any additional questions and then verbalized understanding. Patient advised to call surgeon office or pre surgery nurse liaison [phone] if any additional questions.
--- OUTSIDE RECORDS SUMMARY | 2025-04-05 00:36 | XMS_ITS | Clinical Summary ---
Author Organization [facility] Address [address] [place] [id number] Care Team Providers Care Behavioral Sciences Instructor Name Role Phone Dereje Rocha MD Primary Care Provider [phone] SariLubna MD Unavailable [phone] Allergies No known active allergies Medications No [...] on file Legal Sex Female 8:17 AM DECK CADET Gender Identity Not on file Sexual Orientation Not on file Obstetrics History Last Filed Vital Signs Vital Sign Reading Time Taken Comments Blood Pressure 114/79 10/13/2023 12:03 PM DECK CADET Pulse 82 10/13/2023 12:03 PM DECK CADET Temperature 36.7 C (98.1 F) 10/13/2023 12:03 PM DECK CADET Respiratory Rate 17 10/13/2023 12:03 PM DECK CADET Oxygen Saturation 99% 10/13/2023 12:03 PM DECK CADET Inhaled Oxygen Concentration - - Weight 52 kg (114 lb 9.6 oz) 10/13/2023 12:03 PM DECK CADET Height 172.7 cm (5' 8 ) 10/13/2023 12:03 PM DECK CADET Body Mass Index 17.42 10/13/2023 12:03 PM DECK CADET Plan of Treatment Health Maintenance Due Date Last Done Comments Cervical Cancer Screening 1998 Depression Screening 1998 Hepatitis C Screening 1998 DTaP/Tdap/Td Vaccine (6 - Tdap) 2009 10/17/2002, 03/04/2001, 1998, Additional history exists Varicella Vaccines (1 of 2 - 13+ 2-dose series) 2011 Regular Well Visit/Exam 18-64 2016 Influenza Vaccine (Season Ended) 2025 12/14/2014, 12/03/2014 Hepatitis B Screening Completed 1998 , 1998, 1998 HPV Vaccines Completed 05/03/2018, 06/28/2012 Pneumococcal vaccine <65 Aged Out No longer eligible based on patient's age to [place] [address] [facility] GENERIC IDPA Care Teams Behavioral Sciences Instructor Relationship Specialty Start Date End Date Dereje Rocha MD PCP - General Obstetrics and Gynecology 12/23/20 SariLubna hamilton MD [address] DIV IM MEDICAL ONCOLOGY, [facility] [place] [address] Surgeon Breast Surgery 08/25/23
--- OUTSIDE RECORDS SUMMARY | 2025-04-05 00:36 | XMS_ITS | Continuity of Care Document ---
Author Organization [facility] Address [address] [place] [address] Phone Care Team Providers Care Ovens Supervisor Name Role Phone Maynard OD, Dereje Unavailable Unavailable Procedures Procedure Date Eye Exam & Treatment Refraction Eye Exam & Treatment Advance Directives Directive Yes / No Effective Date File Name No Information Encounters Encounter Description Practice Location Reason(s) For Visit Diagnoses Date Provider Providers Copied on Encounter [facility], [address] [place] [address] [address], [place], [place], [id number], tel:[phone] [address] [facility] No Information 4-200 8 Maynard OD Dereje. [address], [address], [place], [address], [place]. tel:[phone] [facility], [address] [place] [address] [address], [place], [place], [id number], tel:[phone] [address] [facility] No Information 2-200 7 Maynard OD Dereje. [address], [address], [place], [address], [place]. tel:[phone] Family History Family Member Type Diagnosis Age At Onset No Information Payers Payer name Insurance type Covered green party ID Authoriza tion(s) [facility] [id number] Social History Type Description Quantity Date Captured [...]
--- OUTSIDE RECORDS SUMMARY | 2025-04-05 00:36 | XMS_ITS | Clinical Summary ---
Author Organization [facility] Address [address] [place] [address] Care Team Providers Care Community Case Manager Name Role Phone Unavailable Primary Care Provider Unavailabl e Source Comments [facility],non-owned Affiliates and Associated Physician Practices is amultiple site organization consisting of ambulatory clinics and hospital sitesin [place], [place], [place] and [place]. This disclosure is being madepursuant to the Care Everywhere program and may not contain all information available regarding this patient. Last updated 18.[place] Allergies No known active allergies Medications * Be aware that medications may not be up to date on this document. Alwaysverify current medications with the patient. Vit-Fe Fumarate-FA ( vitamin) 28-0.8 MG tablet [...] schedule additional testing and imaging as needed. 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 Gender Identity Not on file Sexual Orientation [...] Comments PAP SMEAR 1998 HIV SCREENING 2013 HEPATITIS C SCREENING 03/22/2016 DTAP/TDAP/TD VACCINES (1 - Tdap) 2017 HEPATITIS B VACCINE (1 of 3 - 19+ 3-dose series) 2017 COVID-19 VACCINE ( - 2023-2 5 season) 2024 DEPRESSION SCREENING 11/29/2024 INFLUENZA VACCINE (Season Ended) 2025 10/22/2022, 12/03/2014 ZOSTER VACCINE (1 of 2) 2048 HIB VACCINE Aged Out No longer eligi ble based on patient's age to complete this topic HPV VACCINE Aged Out No longer eligi ble based on patient's age to complete this topic MENINGOCOCCAL (Group B) VACCINE SHARED DECISION-MAKING Aged Out No longer eligible based on patient's age to complete this topic MENINGOCOCCAL GROUPS A/C/Y/W VACCINE Aged Out No longer eligible b ased on patient's age to complete this topic PNEUMOCOCCAL VACCINE Aged Out No long er eligible based on patient's age to complete this topic Insurance [facility] SELF PAY NO INSURANCE Member Subscriber Plan / Payer (Ef fective for All Dates) Name:Kylie Hawthorne I Member ID:Not on file Relation to Subscriber:Not on file Name:KYLIE HAWTHORNE I Subscriber ID:Not on file (Home) Address: [address] [place] [address] Payer ID:Not on file Group ID:Not on file Type:Self Pay Address: [place], [place]
--- OUTSIDE RECORDS SUMMARY | 2025-04-05 00:36 | XMS_ITS | Referral Summary ---
Author Organization [facility] Address [address] [place] [id number] Care Team Providers Care Mirror Machine Feeder Name Role Phone Dereje Rocha MD Primary Care Provider [phone] SariLubna MD Unavailable [phone] Allergies No known active allergies Medications No [...] on file Legal Sex Female 8:17 AM JEWELRY MOLD MAKER Gender Identity Not on file Sexual Orientation Not on file Last Filed Vital Signs Vital Sign Reading Time Taken Comments Blood Pressure 114/79 10/13/2023 12:03 PM JEWELRY MOLD MAKER Pulse 82 10/13/2023 12:03 PM JEWELRY MOLD MAKER Temperature 36.7 C (98.1 F) 10/13/2023 12:03 PM JEWELRY MOLD MAKER Respiratory Rate 17 10/13/2023 12:03 PM JEWELRY MOLD MAKER Oxygen Saturation 99% 10/13/2023 12:03 PM JEWELRY MOLD MAKER Inhaled Oxygen Concentration - - Weight 52 kg (114 lb 9.6 oz) 10/13/2023 12:03 PM JEWELRY MOLD MAKER Height 172.7 cm (5' 8 ) 10/13/2023 12:03 PM JEWELRY MOLD MAKER Body Mass Index 17.42 10/13/2023 12:03 PM JEWELRY MOLD MAKER Plan of Treatment Not on file Insurance IDPA [facility] IDPA Care Teams Mirror Machine Feeder Relationship Specialty Start Date End Date Dereje Rocha MD PCP - General Obstetrics and Gynecology 12/23/20 [place] MD [address] [facility] [address] [facility] [address] DIV IM MEDICAL ONCOLOGY, [facility] [address] [place] [address] Surgeon Breast Surgery 08/25/23
--- NOTE | 2025-04-05 06:30 | P.HP_ITS ---
H&P: HPI History of Present Illness Date/Time: 04/05/25 06:30 Chief Complaint: Abnormal uterine bleeding Narrative: 25-year-old female who presents for hysteroscopy, D&C, endometrial ablation for abnormal uterine bleeding. Review of Systems Cardiovascular: Cardiovascular: Denies chest pain, Denies leg edema, Denies palpitations, Denies dyspnea and Denies dyspnea on exertion Respiratory: Respiratory: Denies cough, Denies dyspnea and Denies dyspnea on e xertion Gastrointestinal: Gastrointestinal: Denies abdominal pain, Denies constipation, Denies diarrhea, Denies nausea and Denies vomiting Genitourinary: Genitourinary: Denies hematuria, Denies urinary frequency, Denies dysuria, Denies pelvic pain, Denies urinary incontinence and Denies vagi nal discharge Neurologic: Reports system reviewed and no additional complaints, except as documented Psychiatric: Psychiatric: Reports no additional psychiatric complaints Endocrine: Endocrine: Denies palpitations PMFSH Past Medical History Medical History Encounter for removal of intrauterine contraceptive device Encounter for insertion of intrauterine contraceptive device Irregular periods Kidney disease (~04/29/18) clogged kidney Anxiety and depression Surgical History Surgical History H/O gynecological procedure 01/11/25; laparoscopic bilateral salpingectomy hysteroscopy D&C Mirena IUD removal 12/08/23 Family History Family History Mother Diabetes mellitus Breast cancer, Onset Age: 45 Grandparent Diabetes mellitus Sibling Diabetes mellitus Social History Social History Smoking packs per day: 0.5 Smoking cigarettes per day: 10.0 Smoking status: Former smoker Tobacco type: e-cigarettes/vaping Second hand tobacco smoke exposure: No Smoking end date: 01/20/22 Alcohol intake: current Substance use: never Substance use type: does not use Do You Feel Safe in your Home?: Yes Lack of Transportation: No Lack of Food: Never True Current Housing: I Have Housing Concerned About Future Housing: No Difficulty Paying Gas/Electric Bills: No Difficulty Paying for Meds: No Currently Unemployed: No Education: Grade School Difficulty w/ Childcare or Family Care: No Living arrangements: with family Occupation/Education: occupation Additional occupation/education comments: [employer] Gender identity (if verbalized by the patient): Female Sexual Orientation (if Verbalized by the Patient): Straight or Heterosexual Spiritual care concerns: No Meds Home Medications and Allergies Home Medications ?Medication ?Instructions ?Recorded ?Confirmed ?Type vits no.126-ferrous fum 1 tablet PO DAILY #90 tabs 12/01/24 03/29/25 Rx 28 mg iron-folic acid 800 mcg tablet (Classic ) sertraline 50 mg tablet 100 mg (2 x 50 mg) PO DAILY #30 02/13/25 03/29/25 Rx tabs levothyroxine 25 mcg tablet See Rx Instructions .Route 02/26/25 03/29/25 Rx .COMPLEX #30 tabs Allergies Allergy/AdvReac Type Severity Reaction Status Date / Time No Known Allergies Allergy Verified 03/29/25 10:44 Exam Const: General: no acute distress Eyes: EOM: EOMs intact bilaterally Neck: Neck: supple Thyroid: thyroid normal Chest: Breast/axilla inspection: normal inspection of the breasts Breast/axilla palpation: normal palpation of the breasts, normal palpation of the axillae and no axillary lymphadenopathy Resp: Effort & Inspection: normal respiratory effort Auscultation: clear to auscultation bilaterally Cardio: Rate: regular rate Rhythm: regular rhythm GI: Inspection: non-distended GI Palp: Yes Soft to palpation, No Tenderness to palpation present (GI) and No Guarding due to palpation present (GI) Auscultation: normal bowel sounds : General: No bladder normal to palpation External Female Exam: normal external appearance Speculum Exam - Vagina: normal vaginal discharge and No vaginal bleeding Speculum Exam - Cervix: nontender Bimanual exam- vagina & uterus: No bladder normal to palpation and No Cervical tenderness present OB/external & speculum: No vaginal bleeding Skin: General skin exam: normal color and no rashes or lesions noted Neuro: Cognition (Neuro): normal cognition Speech: normal speech Extrem: General: normal to inspection and no edema Psych: Mental Status: mental status grossly normal Affect: normal affect Assessment and Plan Assessment and plan (1) Abnormal uterine bleeding (AUB): Code(s): N93.9 - Abnormal uterine and vaginal bleeding, unspecified Status: Acute Assessment and Plan: patient has history of abnormal uterine bleeding Patient had heavy prolonged menses Hysteroscopy D&C with endometrial ablation was attempted but failed due to uterine perforation Risks, benefits, alternatives reviewed Will proceed with hysteroscopy, D&C, endometrial ablation
[2025-04-05 10:33] VITALS: BP 127/84; PULSE 61; TEMP 36.5; O2SAT 98; BMI 19.4
[2025-04-05] MEDS: ACETAMINOPHEN 500 MG TABLET 1000 MG PO (10:35)
[2025-04-05] MEDS: LACTATED RINGERS 1,000 ML 30 ML IV CONT (10:36)
[2025-04-05 10:37] LABS: BEDSIDEPREGUCG Negative (Negative)
--- NOTE | 2025-04-05 11:36 | WPDHPUPDATE1 ---
History and Physical Update Update Date/Time: 04/05/25 11:36 History and Physical has been reviewed, including an updated exam of the patient. There are NO changes in the patient's condition. Risks, benefits, and alternatives have been discussed and questions answered. Patient agrees to proceed with procedure.
--- NOTE | 2025-04-05 11:40 | P.PNAN_ITS ---
Anes - Initial Pre Proc Eval Procedure: Operation Date: 04/05/25 12:00 Proposed Procedures p Hysteroscopy Dilation and Curettage with Ema Endometrial Ablation - Edy Damon MD Date/Time: 04/05/25 11:40 Surgeon: Edy Damon MD Pre Op Diagnosis: abdominal uterine bleeding Patient Data Age: 25 Gender: F Height: 1.7 m Weight: 56.2 kg Last Vital Signs Temp 97.7 F 04/05/25 10:33 Pulse 61 04/05/25 10:33 BP 127/84 04/05/25 10:33 Pulse Ox 98 04/05/25 10:33 O2 Del Method Room Air 04/05/25 10:33 Allergies Allergy/AdvReac Type Severity Reaction Status Date / Time No Known Allergies Allergy Verified 04/05/25 10:31 Home Medications ?Medication ?Instructions ?Recorded ?Confirmed ?Type vits no.126-ferrous fum 1 tablet PO DAILY #90 tabs 12/01/24 04/05/25 Rx 28 mg iron-folic acid 800 mcg tablet (Classic ) sertraline 50 mg tablet 100 mg (2 x 50 mg) PO DAILY #30 02/13/25 04/05/25 Rx tabs levothyroxine 25 mcg tablet See Rx Instructions .Route 02/26/25 04/05/25 Rx .COMPLEX #30 tabs Laboratory Tests 04/05/25 10:33 POC Urine HCG, Qual Negative (Negative) Patient hx anesthesia problems: none Family hx anesthesia problems: none Results Review: All pre-operative results and documents have been reviewed as part of the pre- operative evaluation. [facility] Past Medical History Medical History Encounter for removal of intrauterine contraceptive device Encounter for insertion of intrauterine contraceptive device Irregular periods Kidney disease (~04/29/18) clogged kidney Anxiety and depression Surgical History Surgical History H/O gynecological procedure 01/11/25; laparoscopic bilateral salpingectomy hysteroscopy D&C Mirena IUD removal 12/08/23 Family History Family History Mother Diabetes mellitus Breast cancer, Onset Age: 45 Grandparent Diabetes mellitus Sibling Diabetes mellitus Social History Social History Smoking packs per day: 0.5 Smoking cigarettes per day: 10.0 Smoking status: Former smoker Tobacco type: e-cigarettes/vaping Second hand tobacco smoke exposure: No Smoking end date: 01/20/22 Alcohol intake: current Substance use: never Substance use type: does not use Do You Feel Safe in your Home?: Yes Lack of Transportation: No Lack of Food: Never True Current Housing: I Have Housing Concerned About Future Housing: No Difficulty Paying Gas/Electric Bills: No Difficulty Paying for Meds: No Currently Unemployed: No Education: Grade School Difficulty w/ Childcare or Family Care: No Living arrangements: with family Occupation/Education: occupation Additional occupation/education comments: [employer] Gender identity (if verbalized by the patient): Female Sexual Orientation (if Verbalized by the Patient): Straight or Heterosexual Spiritual care concerns: No Anes - Eval Final PreProcedure Day of Procedure 04/05/25 11:40 Patient weight: normal and thin Lungs: normal air movement Airway: Mallampati scale class II Neurological: alert and oriented Last oral intake: >/= 8 hours ASA classification: II Emergent: no Anesthetic plan: proceed Anesthesia type and monitoring: general GIVS and standard monitoring Results Review: All pre-operative results and documents have been reviewed as part of the pre- operative evaluation. Hypothyroidism, pt vapes daily. Informed Consent: The patient's anesthetic plan and its attendant risks and benefits were discussed with the patient/family/POA. Questions were solicited and answers provided to the satisfaction of the patient/family/POA.
[2025-04-05 12:49] VITALS: BP 109/69; PULSE 76; RESP 12; O2SAT 100
--- NOTE | 2025-04-05 12:49 | W.PM.PROC2 ---
Procedure Note - Detailed Date of Procedure 04/05/25 Pre-op Diagnosis abdominal uterine bleeding Post-op Diagnosis Same Procedure Performed Hysteroscopy D&C Surgeon Edy Damon MD Anesthesia General Indications Abnormal uterine bleeding Findings Grossly normal appearing uterine cavity, normal tubal ostia bilaterally Description of Procedure The patient was taken to the OR and general anesthesia induced. She was prepped and draped in Je stirrups with support of the back and bilateral lower extremities. I/O catheterization performed of the bladder. The above findings were noted. A single tooth tenaculum was placed on the anterior lip of the cervix. The uterus sounded to 7 cm. The cervix did not require any dilation. Hysteroscopy, using a normal saline medium, was performed and showed the above findings. Sharp uterine curettage was then performed and tissue placed on Telfa. Hysteroscopy was then repeated to ensure intact uterine cavity. The Ema device was set to a depth of 4.5 cm. The device was inserted into the uterus and deployed. Good fit was reassured by the device indicator. The cervical balloon was insufflated. Uterine integrity test was performed by the Ema device and failed x2. A 2nd Ema device was opened with the same error message. Insufficient seal was noted at the cervix. The posterior cervix was grasped with another tenaculum. Insufficient seal was again noted at the cervix. Seal at the cervix was attempted with ring forceps. Again the device would not pass integrity screening. Hysteroscopy was repeated for the 3rd time. No perforations were identified under direct visualization. A final attempt to of activating the device was tried and again failed. At this time decision was made to abort the procedure. The cervical balloon was desufflated and the device was removed from the uterus. The hysteroscope was re-introduced to ensure adequate tissue ablation. The tenaculum was removed. A small vaginal laceration was noted on the posterior aspect of the cervix from the tenaculum. The laceration was made hemostatic with a single interrupted suture of 3-0 Vicryl. The patient tolerated the procedure well. Sponge, lap, and needle counts were correct. The patient had SCD's on throughout the case for VTE prophylaxis. The patient was taken to the recovery room in stable condition. Estimated Blood Loss 150 Drains No Packing No Pathology Yes (uterine curettings ) Complications Other complications (Procedure aborted, device would not pass integrity testing) Condition Stable Disposition PACU [facility] Billing Surgery - Charge Forward: Surgery Billing
[2025-04-05 13:19] VITALS: BP 113/84; PULSE 53; RESP 16
[2025-04-05] MEDS: oxyCODONE HCL (*CRX) 5 MG TAB IR PO (13:34)
[2025-04-05 13:49] VITALS: BP 109/69; PULSE 77; RESP 18
== END 2025-04-05 14:09 | disposition home or self-care (01) ==
PROVIDERS: PCP Nurse Practitioner Family; Visit Provider Student in an Organized Health Care Education/Training Program
PROC: 0U5B8ZZ Destruction of Endometrium, Via Natural or Artificial Opening Endoscopic (ICD-10-PCS; CPT 58563; principal; 2025-04-05 12:00)
DX: N93.9 Abnormal uterine and vaginal bleeding, unspecified (principal); N28.9 Disorder of kidney and ureter, unspecified; F41.8 Other specified anxiety disorders; Z98.890 Other specified postprocedural states; Z87.891 Personal history of nicotine dependence; Z80.3 Family history of malignant neoplasm of breast
CPT/HCPCS: 58558; 88305; A9270; J2003; J2250; J2704; J3010; J7120